=== PATIENT | female | born 1940 | race Caucasian/White ===

== ENCOUNTER 2016-11-30 12:03 | Emergency (ER) | payer MEDICARE, OTHER ==
[2016-11-30 12:16] VITALS: BP 123/78
--- NOTE | 2016-11-30 12:32 | EDM.PDOC ---
ED HPI GENERAL MEDICAL PROBLEM - General Chief Complaint: Lower Extremity Injury/Pain Stated Complaint: Kicked by cow Time Seen by Provider: 11/30/16 12:10 Source of Information: Reports: Patient, RN Notes Reviewed History Limitations: Reports: No Limitations - History of Present Illness INITIAL COMMENTS - FREE TEXT/NARRATIVE: 76 year old female presents to the ED with bruising, swelling, and pain to right knee. She was kicked by a cow around 730 this morning. She is able to bear weight but says it's painful. She was kicked to the lateral aspect of her right knee. She has a history of a total knee replacement. She has a history of peripheral neuropathy but denies any new numbness or tingling today. She denies hip or pelvis pain. She denies any additional injury. She takes aspirin but is otherwise not on blood thinners. Right Knee Pain Score (Numeric/FACES): 7 - Related Data Allergies Allergy/AdvReac Type Severity Reaction Status Date / Time No Known Allergies Allergy Verified 11/30/16 12:16 Home Meds: Home Meds Aspirin 81 mg PO BRK 11/30/16 [History] Past Medical History HEENT History: Reports: Macular Degeneration Gastrointestinal History: Reports: Chronic Constipation, Other (See Below) Other Gastrointestinal History: inguinal hernia Neurological History: Reports: Neuropathy, Peripheral, Parkinson's Dermatologic History: Reports: Other (See Below) Other Dermatologic History: skins spots to patient's back - Past Surgical History HEENT Surgical History: Reports: Cataract Surgery Musculoskeletal Surgical History: Reports: Knee Replacement, Other (See Below) Other Musculoskeletal Surgeries/Procedures:: RTKR Social & Family History - Family History Family Medical History: Noncontributory - Tobacco Use Smoking Status *Q: Never Smoker Second Hand Smoke Exposure: No - Caffeine Use Caffeine Use: Reports: Coffee - Alcohol Use Days Per Week of Alcohol Use: 0 - Recreational Drug Use Recreational Drug Use: No Review of Systems - Review of Systems Review Of Systems: See Below Respiratory: Reports: No Symptoms. Denies: Shortness of Breath, Cough Cardiovascular: Reports: No Symptoms. Denies: Chest Pain GI/Abdominal: Reports: No Symptoms. Denies: Abdominal Pain Musculoskeletal: Reports: Joint Pain, Joint Swelling. Denies: Neck Pain Neurological: Reports: No Symptoms. Denies: Confusion, Dizziness, Headache, Numbness, Tingling, Weakness ED EXAM, GENERAL - Physical Exam Exam: See Below Exam Limited By: No Limitations General Appearance: Alert, No Apparent Distress, Thin Respiratory/Chest: No Respiratory Distress, Lungs Clear, Normal Breath Sounds, Chest Non-Tender Cardiovascular: Normal Peripheral Pulses, Regular Rate, Rhythm, No Murmur Peripheral Pulses: 2+: Popliteal (R), Posterior Tibial (R) GI/Abdominal: Normal Bowel Sounds, Soft, Non-Tender Extremities: Joint Swelling (right knee), Other (joint effusion to right knee. She has a large hematoma to the lateral aspect of her right knee. She is able to flex and extend but is limtied due to swelling. She has no pain to the joint itself. Her pain is mostly to the lateral aspect of her knee where the hematoma is located. Neurovascular status intact. Pedal pulses are 2+. ) Neurological: Alert, Oriented, Normal Cognition, No Motor/Sensory Deficits Skin Exam: Warm, Dry, Intact, Other (bruising right knee) Course - Vital Signs Last Recorded V/S: Last Vital Signs Temp 98.2 F 11/30/16 12:12 Pulse 80 11/30/16 12:12 Resp 18 11/30/16 12:12 BP 123/78 11/30/16 12:12 Pulse Ox 92 L 11/30/16 12:12 - Orders/Labs/Meds Orders: Active Orders 24 hr Category Date Time Status Knee Min 4V Rt [CR] Stat Exams 11/30/16 12:23 Ordered - Re-Assessments/Exams Free Text/Narrative Re-Assessment/Exam: X-rays of right knee are negative for fracture. Prosthesis appears to be in place. Reviewed with Dr. Cotto who agrees. Radiologist interpretation is pending. Knee was jose wrapped. She has a walker at home and has family assistance at home. She was thoroughly educated on supportive care and s/s of DVT. She was educated on exercises to help prevent DVT. Educated on return precautions. Departure - Departure Time of Disposition: 13:11 Disposition: Home, Self-Care 01 Condition: Good Clinical Impression: Traumatic hematoma of right knee Qualifiers: Encounter type: initial encounter Qualified Code(s): S80.01XA - Contusion of right knee, initial encounter History of total knee replacement Qualifiers: Laterality: right Qualified Code(s): Z96.651 - Presence of right artificial knee joint - Discharge Information Referrals: PCP,None [Primary Care Provider] - Forms: ED Department Discharge Additional Instructions: Rest ice and elevate Ice at least 5 times a day for at least 20 minutes at a time Jose wrap to right knee as tolerated Tylenol 1000mg every 8 hours as needed for pain Naproxyn (aleve) 1 tab twice a day as needed for pain (take with food) Follow-up with Ivana Raman next week for recheck Return to ER with any sign of blood clot (pain, swelling, or redness to the back of your leg) or with fever or shortness of breath - My Orders Last 24 Hours: My Active Orders 11/30/16 12:23 Knee Min 4V Rt [CR] Stat - Assessment/Plan Last 24 Hours: My Active Orders 11/30/16 12:23 Knee Min 4V Rt [CR] Stat
--- NOTE | 2016-11-30 15:05 | CR ---
Right knee: Four views of the right knee were obtained. Comparison: No prior knee exam. Knee prosthesis is seen. Components are aligned. Soft tissue swelling is seen laterally. No acute fracture or other bony abnormality is seen. Mild vascular calcification is seen. Impression: 1. Soft tissue swelling laterally. 2. Other incidental findings. No acute bony abnormality is identified. Diagnostic code #2
== END 2016-11-30 13:20 | disposition home or self-care (01) ==
LOC: JD.ED 12:03
DX: S80.01XA Contusion of right knee, initial encounter (principal); Z96.651 Presence of right artificial knee joint; W55.22XA Struck by cow, initial encounter
CPT/HCPCS: 73564-26-RT; 73564-RT; 99283

== ENCOUNTER 2017-07-10 22:57 | Emergency (ER) | payer MEDICARE, OTHER ==
[2017-07-10] MEDS: HYDROmorphone 0.5 MG/0.5 ML SYRINGE IVPUSH ONE (23:30)
[2017-07-10] MEDS: Sodium Chloride 0.9% 500 ML IV ONE (23:30)
[2017-07-10] MEDS: Sodium Chloride 0.9% 10 ML Syringe FLUSH PRN (23:30)
[2017-07-10] MEDS: Famotidine 20 MG/2 ML SDV IVPUSH ONE (23:30)
[2017-07-10] MEDS: Ondansetron 4 MG/2 ML SDV IVPUSH ONE (23:30)
--- NOTE | 2017-07-11 00:13 | EDM.PDOC ---
ED HPI GENERAL MEDICAL PROBLEM - General Chief Complaint: Abdominal Pain Stated Complaint: BACK AND ABDOMINAL PAIN Time Seen by Provider: 07/10/17 23:13 Source of Information: Reports: Patient, RN Notes Reviewed - History of Present Illness INITIAL COMMENTS - FREE TEXT/NARRATIVE: 77-year-old female comes in with upper abdominal pain. She states this started last evening and the pain does continue. It has been fairly steady although not as bad for a while today. she has been eating some toast and crackers but not much else. The pain now also is radiating into her back. Been nauseated but no vomiting. No diarrhea. She states she did have a normal BM earlier today. No obvious fever or chills. No chest pain or difficulty breathing. She still does have her appendix and gallbladder. She has had prior hernia surgery many years ago. Middle Abdominal Pain Score (Numeric/FACES): 9 - Related Data Allergies Allergy/AdvReac Type Severity Reaction Status Date / Time No Known Allergies Allergy Verified 07/10/17 23:06 Home Meds: Home Meds Aspirin 81 mg PO BRK 11/30/16 [History] Multivitamin [Multivitamins] 1 each PO DAILY 07/10/17 [History] Ondansetron [Zofran ODT] 4 mg PO Q6H PRN #10 tab.dis 07/11/17 [Rx] Past Medical History HEENT History: Reports: Macular Degeneration Gastrointestinal History: Reports: Chronic Constipation, Other (See Below) Other Gastrointestinal History: inguinal hernia Neurological History: Reports: Neuropathy, Peripheral, Parkinson's Dermatologic History: Reports: Other (See Below) Other Dermatologic History: skins spots to patient's back - Past Surgical History HEENT Surgical History: Reports: Cataract Surgery Musculoskeletal Surgical History: Reports: Knee Replacement, Other (See Below) Other Musculoskeletal Surgeries/Procedures:: RTKR Social & Family History - Family History Family Medical History: Noncontributory - Tobacco Use Smoking Status *Q: Never Smoker - Caffeine Use Caffeine Use: Reports: Coffee - Recreational Drug Use Recreational Drug Use: No ED ROS GENERAL - Review of Systems Review Of Systems: See Below Constitutional: Denies: Fever, Chills HEENT: Denies: Sinus Problem, Throat Pain Respiratory: Denies: Shortness of Breath, Pleuritic Chest Pain Cardiovascular: Denies: Chest Pain GI/Abdominal: Reports: Abdominal Pain, Nausea. Denies: Hematochezia, Melena Musculoskeletal: Reports: Back Pain. Denies: Arm Pain Skin: Reports: No Symptoms Neurological: Reports: No Symptoms ED EXAM, GI/ABD - Physical Exam Exam: See Below General Appearance: Alert, Moderate Distress Throat/Mouth: Normal Inspection, Normal Oropharynx Neck: Supple Respiratory/Chest: No Respiratory Distress, Lungs Clear, Normal Breath Sounds Cardiovascular: Regular Rate, Rhythm GI/Abdominal Exam: Soft, Other (Very mild upper midepigastric tenderness, abdomen otherwise soft and nontender). No: Guarding, Rebound Extremities: Normal Inspection. No: Pedal Edema, Leg Pain Neurological: Alert, Oriented, No Motor/Sensory Deficits Skin Exam: Warm, Dry, Normal Color EKG INTERPRETATION EKG Date: 07/10/17 Rhythm: NSR Holly: LAD-Left Holly Deviation P-Wave: Present QRS: Normal ST-T: Normal Course - Vital Signs Last Recorded V/S: Last Vital Signs Temp 98.7 F 07/10/17 23:03 Pulse 73 07/10/17 23:03 Resp 16 07/10/17 23:03 BP 132/83 07/10/17 23:03 Pulse Ox 94 L 07/10/17 23:03 - Orders/Labs/Meds Orders: Active Orders 24 hr Category Date Time Status EKG Documentation Completion [RC] ASDIRECTED Care 07/10/17 23:07 Active Peripheral IV Care [RC] . DIRECTED Care 07/10/17 23:14 Active Abdomen 2V AP Flat Upright [CR] Stat Exams 07/10/17 23:25 Taken Sodium Chloride 0.9% [Saline Flush] Med 07/10/17 23:13 Active 10 ml FLUSH ASDIRECTED PRN Peripheral IV Insertion Adult [OM.PC] Stat Oth 07/10/17 23:14 Ordered EKG 12 Lead [EK] Stat Ther 07/10/17 23:07 Ordered Medication Orders Sodium Chloride (Saline Flush) 10 ml FLUSH ASDIRECTED PRN PRN Reason: Keep Vein Open Last Admin: 07/10/17 23:30 Dose: 10 ml Labs: Laboratory Tests 07/10/17 07/10/17 07/10/17 Range/Units 23:20 23:20 23:20 WBC 6.42 (3.98-10.04) K/mm3 RBC 4.58 (3.98-5.22) M/mm3 Hgb 13.9 (11.2-15.7) gm/L Hct 42.1 (34.1-44.9) % MCV 91.9 (79.4-94.8) fl MCH 30.3 (25.6-32.2) pg MCHC 33.0 (32.2-35.5) g/dl RDW Std Deviation 43.0 (36.4-46.3) fL Plt Count 162 L (182-369) K/mm3 MPV 9.6 (9.4-12.3) fl Neut % (Auto) 78.0 H (34.0-71.1) % Lymph % (Auto) 15.3 L (19.3-51.7) % Bath % (Auto) 5.1 (4.7-12.5) % Eos % (Auto) 1.1 (0.7-5.8) Baso % (Auto) 0.2 (0.1-1.2) % Neut # (Auto) 5.01 (1.56-6.13) K/mm3 Lymph # (Auto) 0.98 L (1.18-3.74) K/mm3 Bath # (Auto) 0.33 (0.24-0.36) K/mm3 Eos # (Auto) 0.07 (0.04-0.36) K/mm3 Baso # (Auto) 0.01 (0.01-0.08) K/mm3 Sodium 138 (136-145) mEq/L Potassium 4.0 (3.5-5.1) mEq/L Chloride 103 (98-107) mEq/L Carbon Dioxide 25 (21-32) mEq/L Anion Gap 14.0 (5-15) BUN 13 (7-18) mg/dL Creatinine 0.9 (0.55-1.02) mg/dL Est Cr Clr Drug Dosing 42.42 mL/min Estimated GFR (MDRD) > 60 (>60) mL/min BUN/Creatinine Ratio 14.4 (14-18) Glucose 145 H (83-115) mg/dL Calcium 8.5 (8.5-10.1) mg/dL Total Bilirubin 0.7 (0.2-1.0) mg/dL AST 25 (15-37) U/L ALT 21 (14-59) U/L Alkaline Phosphatase 58 (46-116) U/L C-Reactive Protein < 0.2 (<1.0) mg/dL Total Protein 6.6 (6.4-8.2) g/dl Albumin 3.7 (3.4-5.0) g/dl Globulin 2.9 gm/dL Albumin/Globulin Ratio 1.3 (1-2) Lipase 207 (73-393) U/L Meds: Medications Generic Name Dose Route Start Last Admin Trade Name Freq PRN Reason Stop Dose Admin Sodium Chloride 10 ml 07/10/17 23:13 07/10/17 23:30 Saline Flush FLUSH 10 ml ASDIRECTED PRN Administration Keep Vein Open Discontinued Medications Generic Name Dose Route Start Last Admin Trade Name Freq PRN Reason Stop Dose Admin Famotidine 20 mg 07/10/17 23:23 07/10/17 23:30 Pepcid IVPUSH 07/10/17 23:24 20 mg ONETIME ONE Administration Hydromorphone HCl 0.5 mg 07/10/17 23:22 07/10/17 23:30 Dilaudid IVPUSH 07/10/17 23:23 0.5 mg ONETIME ONE Administration Sodium Chloride 500 mls @ 999 mls/hr 07/10/17 23:23 07/10/17 23:30 Normal Saline IV 07/10/17 23:53 999 mls/hr .BOLUS ONE Administration Ondansetron HCl 4 mg 07/10/17 23:23 07/10/17 23:30 Zofran IVPUSH 07/10/17 23:24 4 mg ONETIME ONE Administration - Re-Assessments/Exams Free Text/Narrative Re-Assessment/Exam: 07/11/17 01:02 Labs all come back relatively normal, flat and upright of the abdomen also does not show acute abnormality. We did give her Zofran 4 mg IV, and given some IV fluid, and initial dose of Dilaudid 0.25 mg IV. That did give some relief for a while, pain did start coming back so the 0.25 mg dose was repeated. Next step of evaluation recommended his ultrasound of her gallbladder. It is not appropriate to do that at this time, 1:00 in the morning. I have offered to let her stay here in the ED and do that first thing this morning. She would prefer to go home and do that outpatient. Order for outpatient ultrasound of gallbladder has been written and will be sent over to radiology. Discharge instructions as documented. Departure - Departure Time of Disposition: 00:51 Disposition: Home, Self-Care 01 Condition: Fair Clinical Impression: Abdominal pain Qualifiers: Abdominal location: upper abdomen, unspecified Qualified Code(s): R10.10 - Upper abdominal pain, unspecified - Discharge Information Prescriptions: Ondansetron [Zofran ODT] 4 mg PO Q6H PRN #10 tab.dis PRN Reason: Nausea/Vomiting Instructions: Abdominal Pain, Adult, [id number] Referrals: Ivana Raman, [employer]EL[employer] [Primary Care Provider] - Forms: ED Department Discharge Additional Instructions: Clear liquids and very bland diet as tolerated, Zofran if needed for any further nausea or vomiting, prescription has been sent to [facility], consider taking Pepcid 20 mg daily to help reduce stomach acidity, order for ultrasound of gallbladder has been written and sent to radiology, they will call you this morning to set a time for you to come in and have that done. Nothing to eat or drink after midnight before coming in for the ultrasound, Follow up with Ivana Raman the day after your ultrasound for results, call clinic for appointment, return to ED as needed if symptoms worsening in any way. - My Orders Last 24 Hours: My Active Orders 07/10/17 23:07 EKG Documentation Completion [RC] ASDIRECTED EKG 12 Lead [EK] Stat 07/10/17 23:13 Sodium Chloride 0.9% [Saline Flush] 10 ml FLUSH ASDIRECTED PRN 07/10/17 23:14 Peripheral IV Care [RC] . DIRECTED Peripheral IV Insertion Adult [OM.PC] Stat 07/10/17 23:25 Abdomen 2V AP Flat Upright [CR] Stat - Assessment/Plan Last 24 Hours: My Active Orders 07/10/17 23:07 EKG Documentation Completion [RC] ASDIRECTED EKG 12 Lead [EK] Stat 07/10/17 23:13 Sodium Chloride 0.9% [Saline Flush] 10 ml FLUSH ASDIRECTED PRN 07/10/17 23:14 Peripheral IV Care [RC] . DIRECTED Peripheral IV Insertion Adult [OM.PC] Stat 07/10/17 23:25 Abdomen 2V AP Flat Upright [CR] Stat
[2017-07-11 01:10] VITALS: BP 116/71
--- NOTE | 2017-07-11 06:49 | CR ---
Abdomen: Supine and upright views of the abdomen were obtained. Comparison: No prior abdominal x-ray. Orthopedic hardware is noted within the left hip affixing an old fracture. Well-corticated bony density which is old is seen off the lateral left hip. Scoliosis and degenerative change are noted within the spine. Mild joint space narrowing is seen superiorly within the right hip. Bowel gas pattern appears normal. No free air is seen. Stable sclerotic area is seen within the left pubic ramus. Impression: 1. Incidental findings. Nothing acute is seen on two-view abdominal x-ray. Diagnostic code #2
== END 2017-07-11 01:11 | disposition home or self-care (01) ==
LOC: JD.ED 22:57
DX: R10.10 Upper abdominal pain, unspecified (principal); Z79.82 Long term (current) use of aspirin; Z79.899 Other long term (current) drug therapy
CPT/HCPCS: 36415; 74019; 80053; 83690; 85025; 86140; 93005; 96361; 96374; 96375; 99284; J1170; J2405; J7040; J7050

== ENCOUNTER 2017-07-11 11:11 | Emergency (ER) | payer MEDICARE, OTHER ==
[2017-07-11 11:29] VITALS: BP 121/69
--- NOTE | 2017-07-11 11:31 | EDM.PDOC ---
ED HPI GENERAL MEDICAL PROBLEM - General Chief Complaint: Abdominal Pain Stated Complaint: BACK AND ABDOMINAL PAIN Time Seen by Provider: 07/11/17 11:29 Source of Information: Reports: Patient - History of Present Illness INITIAL COMMENTS - FREE TEXT/NARRATIVE: Patient is here for evaluation of upper back pain and upper abdominal/ epigastric pain. Patient was in the emergency room last night for evaluation of the same complaints.Patient states that her pain resolved with medication that was given in the emergency room, however the pain medication did cause her to be nauseated. She had 1 emesis last night. She had been prescribed Zofran, but as it was late she had not yet picked this up. Patient states that this morning she continued to have upper back pain so she came back to the emergency room as she was not better. Upon arrival in the emergency room she is not having any pain. Patient reports a history of chronic neck and upper back pain. She states she had injury many years ago of a horse rolling on it. Patient was also very active on Sunday afternoon push m[place]. She states the pain started Sunday night. Patient states that the abdominal pain, when she had it, felt like a gas pain but it was very high up in her abdomen. She has a history of occasional constipation but has had normal bowel movements recently. Her last bowel movement was yesterday and was soft and not difficult to pass. Patient reports no decrease in her appetite, had some toast with water this morning which is her normal and had no nausea or abdominal pain with this. Abdominal Pain Score (Numeric/FACES): 5 - Related Data Allergies Allergy/AdvReac Type Severity Reaction Status Date / Time No Known Allergies Allergy Verified 07/11/17 11:24 Home Meds: Home Meds Aspirin 81 mg PO BRK 11/30/16 [History] Multivitamin [Multivitamins] 1 each PO DAILY 07/10/17 [History] Ondansetron [Zofran ODT] 4 mg PO Q6H PRN #10 tab.dis 07/11/17 [Rx] Past Medical History HEENT History: Reports: Macular Degeneration Gastrointestinal History: Reports: Chronic Constipation, Other (See Below) Other Gastrointestinal History: inguinal hernia Neurological History: Reports: Neuropathy, Peripheral, Parkinson's Dermatologic History: Reports: Other (See Below) Other Dermatologic History: skins spots to patient's back - Past Surgical History HEENT Surgical History: Reports: Cataract Surgery Musculoskeletal Surgical History: Reports: Knee Replacement, Other (See Below) Other Musculoskeletal Surgeries/Procedures:: RTKR Social & Family History - Family History Family Medical History: Noncontributory - Tobacco Use Smoking Status *Q: Never Smoker - Caffeine Use Caffeine Use: Reports: Coffee ED ROS GENERAL - Review of Systems Review Of Systems: See Below Constitutional: Reports: No Symptoms Respiratory: Reports: No Symptoms Cardiovascular: Reports: No Symptoms GI/Abdominal: Reports: Abdominal Pain (Upper/epigastric pain yesterday.), Nausea (Nausea and 1 emesis last night, none currently.). Denies: Decreased Appetite : Reports: No Symptoms Musculoskeletal: Reports: Neck Pain, Back Pain, Muscle Pain ED EXAM, GI/ABD - Physical Exam Exam: See Below Exam Limited By: No Limitations General Appearance: Alert, WD/WN, No Apparent Distress, Other (Thin body habitus ) Respiratory/Chest: No Respiratory Distress, Lungs Clear, No Accessory Muscle Use , Chest Non-Tender Cardiovascular: Normal Peripheral Pulses, Regular Rate, Rhythm, No Murmur GI/Abdominal Exam: Normal Bowel Sounds, Soft, Non-Tender Back Exam: Normal Inspection, Decreased Range of Motion (Overall). No: Paraspinal Tenderness, Vertebral Tenderness Extremities: Normal Inspection Neurological: Alert, Oriented, No Motor/Sensory Deficits Psychiatric: Normal Affect, Normal Mood Skin Exam: Warm, Dry, Intact Course - Vital Signs Last Recorded V/S: Last Vital Signs Temp 99.6 F 07/11/17 11:25 Pulse 67 07/11/17 11:25 Resp 16 07/11/17 11:25 BP 121/69 07/11/17 11:25 Pulse Ox 94 L 07/11/17 11:25 - Orders/Labs/Meds Meds: Medications Discontinued Medications Generic Name Dose Route Start Last Admin Trade Name Freq PRN Reason Stop Dose Admin Sodium Chloride 250 mls @ 80 mls/hr 07/11/17 14:30 07/11/17 14:51 Normal Saline IV 80 mls/hr ASDIRECTED CATINA Infusion Iopamidol 100 ml 07/11/17 14:23 07/11/17 14:50 Isovue-370 (76%) IVPUSH 07/11/17 14:24 70 ml ONETIME ONE Administration Sodium Chloride 10 ml 07/11/17 14:23 07/11/17 14:50 Saline Flush FLUSH 10 ml ONETIME PRN Administration IV FLUSH - Re-Assessments/Exams Free Text/Narrative Re-Assessment/Exam: Patient's physical exam is unremarkable currently. She has no abdominal tenderness. No tenderness to neck or upper back. She is currently pain-free. Lab work from late last night was reviewed and demonstrated white blood count of 6,420. Chemistry was essentially normal, glucose elevated at 145. Bilirubin was 0.7. Normal liver enzymes. Lipase was completed and normal at 207. CRP was <0.2. Abdominal x-ray last night demonstrated nothing acute. As it was her neck and upper back pain that brought her back this morning, we' ll get an x-ray of her cervical and thoracic spine. She is currently in no pain , no medications indicated. 07/11/17 11:58 X-ray of cervical and thoracic spine demonstrated some kyphosis, scoliosis and significant degenerative changes. Questionable enlargement of the ascending aorta, will get CT of the chest. 07/11/17 14:07 X-ray of the cervical spine demonstrates degenerative changes. Xray of thoracic spine demonstrates scoliosis and osteoporosis with end plate osteophytes. 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 Recommend follow-up with PCP for monitoring of this. Does not have gallstones, but cannot exclude sludge on x-ray and recommend she still continue with her ultrasound of her gallbladder as scheduled. She is to continue to maximize oral fluid intake, bland diet with very low fat. She will follow up on an outpatient basis for her ultrasound. She'll follow- up with her primary provider after this. Certainly return to the emergency room if needed. 07/11/17 15:51 07/11/17 16:31 Departure - Departure Time of Disposition: 15:25 Disposition: Home, Self-Care 01 Condition: Good Clinical Impression: Neck pain Abdominal pain Qualifiers: Abdominal location: upper abdomen, unspecified Qualified Code(s): R10.10 - Upper abdominal pain, unspecified Back pain Qualifiers: Back pain location: thoracic back pain Back pain laterality: midline - Discharge Information Instructions: Back Pain, Adult, Abdominal Pain, Adult, [id number] Referrals: Ivana Raman [employer] MANAGER [Primary Care Provider] - Forms: ED Department Discharge Additional Instructions: You were evaluated in the emergency room for a history of abdominal pain. Your exam here today was normal. Lab work and abdominal x-ray from yesterday were reviewed and normal as well. I recommend you have a bland, low-fat diet and follow-up with your outpatient ultrasound appointment. You will follow up with her primary provider to discuss these results. X-ray of your neck and upper back demonstrated significant arthritic changes. I recommend ibuprofen 400 mg 3 times a day as needed for this. You should drink lots of fluids to flush this through your system and take the ibuprofen with a small amount of food so it does not upset your stomach. CT demonstrated a mildly enlarged aorta, I recommend that he discuss this with her primary provider for them to follow in the future. Follow-up with your primary provider within the next week or certainly return to the emergency room if any worsening of symptoms.
[2017-07-11] MEDS: Sodium Chloride 0.9% 250 ML IV SCH (14:50)
[2017-07-11] MEDS: Iopamidol 755 Mg/ML 100 ML Bottle IVPUSH ONE (14:50)
[2017-07-11] MEDS: Sodium Chloride 0.9% 10 ML Syringe FLUSH PRN (14:50)
--- NOTE | 2017-07-11 15:05 | CR ---
Cervical spine: AP, lateral and odontoid views of the cervical spine were obtained. Comparison: No prior cervical spine imaging. Severe disc space narrowing is noted at C5-C6 with moderate disc space narrowing noted at C6-C7. Anterior osteophytes are seen at both these levels. Mild disc space narrowing at C3-C4. Bony structures are osteopenic. Degenerative apophyseal change is scattered within the cervical spine. No subluxation or fracture is seen. Impression: 1. Degenerative change as noted above with osteopenia. Diagnostic code #2
--- NOTE | 2017-07-11 15:15 | CT ---
CT chest Technique: Multiple axial sections through the chest were obtained. Intravenous contrast was utilized. Study performed as an aortogram exam. Comparison: Prior chest x-ray 06/01/15, no previous chest CT. Findings: Ascending aorta is mildly ectatic with AP dimension of 3.7 cm. No evidence of aortic dissection. Visualized pulmonary arteries show no filling defects of pulmonary embolism. Mediastinum and hilar regions show no adenopathy or mass. No axillary adenopathy is seen. No pericardial thickening is identified. Slight scarring is noted within both lung bases. No acute parenchymal change is suspected. Bone window settings were reviewed which shows nothing acute. Impression: 1. Ectatic ascending aorta. No evidence of aortic dissection. 2. Other incidental findings. Diagnostic code #2 CT abdomen Technique: Multiple axial sections were obtained from above the dome of the diaphragm inferiorly to slightly above the hips. Intravenous contrast was utilized. No oral contrast has been given. Comparison: No prior abdominal imaging. Findings: Liver shows no focal parenchymal abnormality. Gallbladder contains no calcified gallstones. Spleen appears within normal limits. Aorta shows ectasia without focal aneurysm. No aortic dissection is seen. Kidneys show symmetric contrast enhancement. Calcification is seen within the right kidney compatible with nonobstructing stone. Renal arteries are patent with no stenosis. Celiac axis and superior mesenteric artery appear patent. Inferior mesenteric artery is also patent. No retroperitoneal adenopathy or mesenteric abnormalities are seen. Pancreas is felt to be within normal limits. Bone window settings were reviewed showing degenerative change and scoliosis within the spine. Impression: 1. Incidental findings as noted above. Nothing acute is seen. No dissection is seen. Diagnostic code #2
--- NOTE | 2017-07-11 15:15 | CR ---
Thoracic spine: AP, lateral and swimmer's views of the thoracic spine were obtained. Comparison: No prior thoracic spine study. Bony structures are osteoporotic. Mild scoliosis is present. Vertebral body heights are maintained. Minimal scattered endplate osteophytes are seen. No subluxation or fracture is appreciated. Impression: 1. Scoliosis and osteoporosis. 2. Minimal scattered endplate osteophytes. Diagnostic code #2
== END 2017-07-11 15:49 | disposition home or self-care (01) ==
LOC: JD.ED 11:11
DX: M54.6 Pain in thoracic spine (principal); R10.10 Upper abdominal pain, unspecified; M54.2 Cervicalgia; Z79.82 Long term (current) use of aspirin; Z79.899 Other long term (current) drug therapy
CPT/HCPCS: 71275; 72040; 72070; 99285; J7050; Q9967

== ENCOUNTER 2019-09-08 17:35 | Emergency (ER) | payer MEDICARE, OTHER ==
[2019-09-08 17:49] VITALS: PULSE 75
--- NOTE | 2019-09-08 17:56 | EDM.PDOC ---
ED HPI GENERAL MEDICAL PROBLEM - General Chief Complaint: Head Injury Stated Complaint: FALL (HEAD INJURY) Time Seen by Provider: 09/08/19 17:55 Source of Information: Reports: Patient History Limitations: Reports: No Limitations - History of Present Illness INITIAL COMMENTS - FREE TEXT/NARRATIVE: 79 year-old female presents to the ED after she tripped up and fell into a steel post at about 1230 hrs. today. She believes she lost her balance and tripped up and struck her right occipital scalp on the metal pole as part of a calf monica. Her right occipital scalp continues to bleed. Daughter unable to recognize for sure where the bleeding is coming from but of obvious suspect laceration. Patient states she heard quite a thud when she hit her head. She did not lose consciousness. At present she has no headache nausea or vomiting. No change in visual acuity and she denies any cervical neck pain. She is unsure when her last tetanus toxoid was updated. Onset: Today Onset Date: 09/08/19 Onset Time: 12:30 Duration: Hour(s): Location: Reports: Head (Occipital scalp with persistent bleeding) Quality: Reports: Ache, Other (Acute bleeding from the right occipital scalp injury.) Severity: Mild Improves with: Reports: None Worsens with: Reports: Other (In the area seems to increase the amount of bleeding.) Context: Reports: Trauma (Fall with blunt force trauma to the right occipital scalp.). Denies: Activity, Exercise, Lifting, Sick Contact Associated Symptoms: Reports: No Other Symptoms. 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) (.) Right Head Pain Score (Numeric/FACES): 1 - Related Data Allergies Allergy/AdvReac Type Severity Reaction Status Date / Time No Known Allergies Allergy Verified 09/08/19 17:49 Home Meds: Home Meds Aspirin 81 mg PO DAILY 11/30/16 [History] Multivitamin [Multivitamins] 1 each PO DAILY 07/10/17 [History] Denosumab [Prolia] 60 mg SQ ASDIRECTED 04/24/19 [History] Past Medical History HEENT History: Reports: Macular Degeneration Gastrointestinal History: Reports: Chronic Constipation, Other (See Below) Other Gastrointestinal History: inguinal hernia Neurological History: Reports: Neuropathy, Peripheral, Parkinson's Endocrine/Metabolic History: Reports: Osteoporosis, Vitamin D Deficiency Dermatologic History: Reports: Other (See Below) Other Dermatologic History: skins spots to patient's back - Past Surgical History HEENT Surgical History: Reports: Cataract Surgery Musculoskeletal Surgical History: Reports: Knee Replacement, Other (See Below) Other Musculoskeletal Surgeries/Procedures:: RTKR Social & Family History - Family History Family Medical History: Noncontributory - Caffeine Use Caffeine Use: Reports: Coffee - Living Situation & Occupation Living situation: Reports: Occupation: Retired ED ROS GENERAL - Review of Systems Review Of Systems: See Below Constitutional: Reports: No Symptoms HEENT: Reports: No Symptoms Respiratory: Reports: No Symptoms Cardiovascular: Denies: Chest Pain, Blood Pressure Problem, Claudication, Lightheadedness, Orthopnea Endocrine: Reports: No Symptoms GI/Abdominal: Reports: No Symptoms : Reports: Frequency, Incontinence (And urge induced.), Other Musculoskeletal: Reports: Shoulder Pain (Regional.), Back Pain, Joint Pain (His hips and neck at times) Skin: Reports: Other (Laceration right occipital scalp.) Neurological: Denies: Confusion, Dizziness, Headache, Pre-Existing Deficit, Seizure, Syncope, Trouble Speaking, Difficulty Walking, Weakness Psychiatric: Reports: No Symptoms Hematologic/Lymphatic: Reports: No Symptoms Immunologic: Reports: No Symptoms ED EXAM, HEAD INJURY - Physical Exam Exam: See Below Exam Limited By: No Limitations General Appearance: Alert, WD/WN, No Apparent Distress, Other (Which was 36.2. Heart rate 75 and sinus respiratory is 18. Sats were 94 to 95% on room air BP 135/79.) Head: Scalp Hematoma (Right occipital scalp), Scalp Tenderness (Occipital scalp.), Active Bleeding ( Small arterial bleeding from a 2.5 cm laceration right occipital scalp.) Nexus Criteria: No: Posterior, Midline Cervical Tenderness, Evidence of Intoxication, Altered Level of Consciousness, Focal Neurological Deficit, Painful Distraction Injuries Eyes: Bilateral Eye: Normal Inspection, PERRL Throat/Mouth: Normal Inspection, Normal Lips, Normal Teeth, Normal Oropharynx Neck: Non-Tender, Limited Range of Motion (He has some crepitus on lateral rotation but near full range of motion.), Stiff Neck (Bile but no worse than normal.). No: Painful Range of Motion, Paraspinous Muscle Tender, Spinous Processes Tender, Tenderness, Tender Lateral Respiratory: No Respiratory Distress, Lungs Clear, Normal Breath Sounds, No Accessory Muscle Use, Decreased Breath Sounds (Decreased breath sounds to both posterior lung bases by about 30%.) Cardiovascular: Regular Rate, Rhythm, No Edema, No Gallop, No Murmur, No Rub. No: Normal Peripheral Pulses ED LACERATION/WOUND & OCTAVIO PROC - Laceration/Wound Repair Right Occipital Head Lac/wound length in cm: 2.5 Appearance: Subcutaneous, Clean Distal NVT: Neuro & Vascular Intact, No Tendon Injury Anesthetic Type: Local Local Anesthesia - Lidocaine (Xylocaine): 1% Plain Local Anesthetic Volume: 3cc Skin Prep: Saline Exploration/Debridement/Repair: Wound Explored Closed with: Sutures Suture Size: 4-0 # of Sutures: 5 Suture Type: Prolene, Interrupted, Simple Course - Vital Signs Last Recorded V/S: Last Vital Signs Temp 36.2 C 09/08/19 17:46 Pulse 75 09/08/19 17:46 Resp 18 09/08/19 17:46 BP 135/79 09/08/19 17:46 Pulse Ox 94 L 09/08/19 17:46 - Orders/Labs/Meds Orders: Active Orders 24 hr Category Date Time Status Vaccines to be Administered [RC] PER UNIT ROUTINE Care 09/08/19 18:45 Ordered Head wo Cont [CT] Stat Exams 09/08/19 18:00 Taken Meds: Medications Discontinued Medications Generic Name Dose Route Start Last Admin Trade Name Freq PRN Reason Stop Dose Admin Diphtheria/Tetanus/Acell Pertussis 0.5 ml 09/08/19 18:45 Adacel IM 09/08/19 18:46 .ONCE ONE Lidocaine HCl 10 ml 09/08/19 18:00 Xylocaine 1% INJECT 09/08/19 18:01 ONETIME ONE - Radiology Interpretation Free Text/Narrative:: 79-year-old female presents to the ED after tripping and falling at about 1230 today and striking her right occipital scalp on a metal pole. The metal pole was part of a calf monica on the farm. He denies any loss of consciousness. She denies any developing headache nausea or vomiting or cervical neck pain. It is appreciated by her daughter that the wound continues to bleed over the last 6 hours. Her hair was matted to her scalp. Identified after cleansing the wound and removing a lot of hair from her right occipital scalp that she has a 2.5 cm laceration in this area with active arterial bleeding. Wound will require suture repair. Plan will be to CT her head to make sure that she does not have any intracranial bleeding. Patient has significant osteoporosis. - Re-Assessments/Exams Free Text/Narrative Re-Assessment/Exam: 09/08/19 18:24: Laceration has been sutured times 5 sutures with 4-0 Prolene. Wound will need to be cleansed daily with showering and use of shampoo. Sutures will need to be removed in 10 days time. Daily bacitracin or Polysporin should be applied to the wound once daily. She will now go for CT of the head. There is no registry for her ever having a tetanus within the last 10 years. I will therefore go ahead with Tdap immunization today. 09/08/19 18:47 CT of the head does not reveal any signs of fracture or intracranial bleeding. She does have advanced dementia changes with significant nonspecific diffuse matter white matter lucency. Mall vessel ischemic change appreciated. No lacunar infarcts is evident. No mass or collection or hemorrhage identified. No skull fracture identified. There is a hematoma right occipital scalp. Mastoid air cells are well aerated. Nonspecific mucosal periosteal thickening in the sphenoid sinus complex. Patient will be discharged to home. Apply bacitracin or Polysporin to the wound once daily. Departure - Departure Time of Disposition: 18:50 Disposition: Home, Self-Care 01 Condition: Fair Clinical Impression: Occipital scalp laceration Qualifiers: Encounter type: initial encounter Qualified Code(s): S01.01XA - Laceration without foreign body of scalp, initial encounter Closed head injury without concussion Qualifiers: Encounter type: initial encounter Qualified Code(s): S09.90XA - Unspecified injury of head, initial encounter - Discharge Information *PRESCRIPTION DRUG MONITORING PROGRAM REVIEWED*: Not Applicable *COPY OF PRESCRIPTION DRUG MONITORING REPORT IN PATIENT JEANINE: Not Applicable Instructions: Laceration Care, Adult, Head Injury, Adult, [id number] Forms: ED Department Discharge Additional Instructions: Ligation in the emergency room today in regards to trip and fall and closed head injury to the right occipital scalp. This injury occurred around 1230 today. No loss of consciousness reported. Subsequently no development of headache nausea or vomiting. Persistent bleeding from the area revealed to be due to a 2.5 cm laceration of the occipital scalp. Wound was cleansed and then sutured under local anesthetic times 5 sutures using 4-0 Prolene. Treatment at home is to daily cleanse the wound with soap and water. Showering is okay. Either that or bathing with shampoo is okay. The wound should be treated with topical antibiotic such as bacitracin or Polysporin or Neosporin once daily. Sutures are going to need to be removed in 10 days time. Please make an appointment with your primary care provider to have this procedure carried out. CT of the brain today reveals age-related is but there is no intracranial bleeding or mass-effect and no skull fractures. There is a hematoma or swelling under the skin under the laceration. Your tetanus, diphtheria and pertussis vaccine was updated today and is good for the next 10 years. Sepsis Event Note (ED) - Evaluation Sepsis Screening Result: No Definite Risk - Focused Exam Vital Signs: Vital Signs Temp Pulse Resp BP Pulse Ox 09/08/19 17:46 36.2 C 75 18 135/79 94 L - My Orders Last 24 Hours: My Active Orders 09/08/19 18:00 Head wo Cont [CT] Stat 09/08/19 18:45 Vaccines to be Administered [RC] PER UNIT ROUTINE - Assessment/Plan Last 24 Hours: My Active Orders 09/08/19 18:00 Head wo Cont [CT] Stat 09/08/19 18:45 Vaccines to be Administered [RC] PER UNIT ROUTINE
[2019-09-08] MEDS ORDERED: Lidocaine 1% 10 ML MDV INJECT ONE (18:00)
[2019-09-08] MEDS ORDERED: Diphtheria,Pertussis(Acell),Tetanus Vaccine 0.5 ML Syringe IM ONE (18:45)
--- NOTE | 2019-09-08 19:16 | CT ---
Head CT Technique: Multiple axial sections through the brain were obtained. Intravenous contrast was not utilized. Comparison: Prior head CT study of 03/24/10. Findings: Ventricles along with basal cisterns and sulci over the convexities are mildly prominent for the patient's age. Diminished density is noted within portions of the periventricular and subcortical white matter. This finding is most likely due to small vessel ischemic demyelination change. No other abnormal parenchymal densities are seen. No evidence of intracranial hemorrhage. No midline shift or mass-effect is seen. Bone window settings were reviewed. No acute findings within the visualized mastoid sinus. Small retention cyst is noted within the right side of the sphenoid sinus measuring 9 mm. No acute paranasal sinus findings are seen within the visualized sinuses. Mild soft tissue swelling is noted within the right parietal scalp. Impression: 1. Mild soft tissue swelling within the right parietal scalp. 2. Senescent change as noted above. 3. Sinus finding believed to be incidental and chronic. 4. No acute intracranial abnormality is appreciated. Diagnostic code #2 This report was dictated in MDT I agree with preliminary report from [facility], finalized on 09/08/19, 7:39 PM Central Daylight Time
[2019-09-08 19:55] VITALS: BP 125/86
== END 2019-09-08 19:13 | disposition home or self-care (01) ==
LOC: JD.ED 17:35
DX: S01.01XA Laceration without foreign body of scalp, initial encounter (principal); Z23 Encounter for immunization; Z79.82 Long term (current) use of aspirin; W01.10XA Fall on same level from slipping, tripping and stumbling with subsequent striking against unspecified object, initial encounter
CPT/HCPCS: 12001; 70450; 90471; 90715; 99284; J2001; 99282

== ENCOUNTER 2019-10-14 17:16 | Observation (INO) | payer MEDICARE, OTHER ==
--- NOTE | 2019-10-14 17:52 | EDM.PDOC ---
ED HPI GENERAL MEDICAL PROBLEM - General Chief Complaint: ENT Problem Stated Complaint: SOMETHING STUCK IN THROAT Time Seen by Provider: 10/14/19 17:51 - History of Present Illness INITIAL COMMENTS - FREE TEXT/NARRATIVE: 79-year-old female presents to the emergency room with some stuck in her throat. The patient was eating almonds and managed to swallow a whole 1 it is stuck in her throat it is difficult for her to trying to drink water at this time. She is not having any breathing difficulties or shortness of breath that is out of the ordinary. She is not having any chest pain or chest pressure. However it is uncomfortable for her to try clear fluids at this point. The patient has Parkinson's disease. Throat Pain Score (Numeric/FACES): 10 - Related Data Allergies Allergy/AdvReac Type Severity Reaction Status Date / Time No Known Allergies Allergy Verified 10/14/19 17:30 Home Meds: Home Meds Aspirin 81 mg PO DAILY 11/30/16 [History] Multivitamin [Multivitamins] 1 each PO DAILY 07/10/17 [History] Denosumab [Prolia] 60 mg SQ ASDIRECTED 04/24/19 [History] Past Medical History HEENT History: Reports: Macular Degeneration Cardiovascular History: Reports: None Respiratory History: Reports: SOB Gastrointestinal History: Reports: Chronic Constipation, Other (See Below) Other Gastrointestinal History: inguinal hernia Genitourinary History: Reports: UTI, 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 Musculoskeletal History: Reports: Other (See Below) Neurological History: Reports: Neuropathy, Peripheral, Parkinson's Other Neuro History: compression fractures to spine Psychiatric History: Reports: None Endocrine/Metabolic History: Reports: Osteoporosis, Vitamin D Deficiency Hematologic History: Reports: None Immunologic History: Reports: None Oncologic (Cancer) History: Reports: None Dermatologic History: Reports: Other (See Below) Other Dermatologic History: skins spots to patient's back - Infectious Disease History Infectious Disease History: Reports: None - Past Surgical History HEENT Surgical History: Reports: Cataract Surgery Musculoskeletal Surgical History: Reports: Knee Replacement, Other (See Below) Other Musculoskeletal Surgeries/Procedures:: RTKR Social & Family History - Family History Family Medical History: Noncontributory - Tobacco Use Smoking Status *Q: Never Smoker - Caffeine Use Caffeine Use: Reports: Soda - Recreational Drug Use Recreational Drug Use: No - Living Situation & Occupation Living situation: Reports: Occupation: Retired ED ROS ENT - Review of Systems Review Of Systems: See Below Constitutional: Reports: No Symptoms HEENT: Reports: Throat Pain Respiratory: Reports: No Symptoms Cardiovascular: Reports: No Symptoms GI/Abdominal: Reports: No Symptoms ED EXAM, ENT - Physical Exam Exam: See Below Exam Limited By: No Limitations General Appearance: Alert, No Apparent Distress (Yet heard the) Mouth/Throat: Normal Inspection, Normal Gums, Normal Lips, Normal Oropharynx Head: Atraumatic, Normocephalic Neck: Normal Inspection, Supple, Non-Tender, Full Range of Motion. No: Lymphadenopathy (L), Lymphadenopathy (R) Respiratory/Chest: No Respiratory Distress, Lungs Clear, Normal Breath Sounds Cardiovascular: Regular Rate, Rhythm, No Edema, No Murmur GI/Abdominal: Normal Bowel Sounds, Soft, Non-Tender Course - Vital Signs Last Recorded V/S: Last Vital Signs Temp 36.4 C 10/14/19 17:28 Pulse 70 10/14/19 17:28 Resp 16 10/14/19 17:28 BP 164/87 H 10/14/19 17:28 Pulse Ox 96 10/14/19 17:28 - Orders/Labs/Meds Orders: Active Orders 24 hr Category Date Time Status Patient Status [ADT] Routine ADT 10/14/19 19:32 Active Lactated Ringers [Ringers, Lactated] 1,000 ml Med 10/14/19 19:30 Active IV ASDIRECTED Schedule Procedure [COMM] Stat Oth 10/14/19 19:32 Ordered Medication Orders Lactated Ringer's (Ringers, Lactated) 1,000 mls @ 125 mls/hr IV ASDIRECTED CATINA Last Admin: 10/14/19 19:33 Dose: 125 mls/hr Documented by: JOHN Labs: Laboratory Tests 10/14/19 Range/Units 19:02 COVID-19 ([place]) Negative (NEGATIVE) Meds: Medications Generic Name Dose Route Start Last Admin Trade Name Freq PRN Reason Stop Dose Admin Lactated Ringer's 1,000 mls @ 125 mls/hr 10/14/19 19:30 10/14/19 19:33 Ringers, Lactated IV 125 mls/hr ASDIRECTED CATINA Administration Discontinued Medications Generic Name Dose Route Start Last Admin Trade Name Freq PRN Reason Stop Dose Admin Glucagon 1 mg 10/14/19 18:04 10/14/19 18:31 Glucagen IVPUSH 10/14/19 18:05 1 mg ONETIME ONE Administration Hydromorphone HCl 0.25 mg 10/14/19 18:04 10/14/19 18:15 Dilaudid IVPUSH 10/14/19 18:05 0.25 mg ONETIME ONE Administration Metoclopramide HCl 5 mg 10/14/19 18:04 10/14/19 18:15 Reglan IVPUSH 10/14/19 18:05 5 mg ONETIME ONE Administration - Re-Assessments/Exams Free Text/Narrative Re-Assessment/Exam: 10/14/19 19:50 Patient was given a trial of Dilaudid and Reglan followed by glucagon after 15 minutes and then was given fluids to try and sip the patient did not tolerate this. Patient was evaluated by Dr. Hood who will take the patient for endoscopy to clear this. Departure - Departure Time of Disposition: 19:51 Disposition: DC/Tfer to [facility] 66 Clinical Impression: Esophageal foreign body - Discharge Information Sepsis Event Note (ED) - Evaluation Sepsis Screening Result: No Definite Risk - Focused Exam Vital Signs: Vital Signs Temp Pulse Resp BP Pulse Ox 10/14/19 17:28 36.4 C 70 16 164/87 H 96 - My Orders Last 24 Hours: My Active Orders 10/14/19 19:32 Patient Status [ADT] Routine Schedule Procedure [COMM] Stat - Assessment/Plan Last 24 Hours: My Active Orders 10/14/19 19:32 Patient Status [ADT] Routine Schedule Procedure [COMM] Stat
[2019-10-14] MEDS ORDERED: Metoclopramide 10 MG/2 ML SDV IVPUSH ONE (18:04)
[2019-10-14] MEDS ORDERED: HYDROmorphone 0.5 MG/0.5 ML Syringe IVPUSH ONE (18:04)
[2019-10-14] MEDS ORDERED: Glucagon,Human Recombinant 1 MG Vial IVPUSH ONE (18:04)
[2019-10-14] MEDS ORDERED: Lactated Ringers 1,000 ML IV SCH (19:30)
--- NOTE | 2019-10-14 19:52 | PCM.HP.2 ---
H&P History of Present Illness - General Date of Service: 10/14/19 Admit Problem/Dx: Admission Diagnosis/Problem Admission Diagnosis/Problem Foreign body in esophagus Source of Information: Patient History Limitations: Reports: No Limitations - History of Present Illness Initial Comments - Free Text/Narative: Patient has Parkinson's disease. She reports that she was eating almonds earlier today and one got stuck in her throat. This happened around 1 pm today. Since then she has been unable to swallow anything including water and she had developed throat pain. No nausea or vomiting. She is not having sialorrhea. Onset of Symptoms: Reports: Today Duration of Symptoms: Reports: Hour(s): (6) Location: Reports: Neck Quality: Reports: Sharp Severity: Severe Improves with: Reports: None Worsens with: Reports: Eating Associated Symptoms: Reports: No Other Symptoms Throat Pain Score (Numeric/FACES): 10 - Related Data Allergies/Adverse Reactions: Allergies Allergy/AdvReac Type Severity Reaction Status Date / Time No Known Allergies Allergy Verified 10/14/19 17:30 Home Medications: Home Meds Aspirin 81 mg PO DAILY 11/30/16 [History] Multivitamin [Multivitamins] 1 each PO DAILY 07/10/17 [History] Denosumab [Prolia] 60 mg SQ ASDIRECTED 04/24/19 [History] Past Medical History HEENT History: Reports: Macular Degeneration Cardiovascular History: Reports: None Respiratory History: Reports: SOB Gastrointestinal History: Reports: Chronic Constipation, Other (See Below) Other Gastrointestinal History: inguinal hernia Genitourinary History: Reports: UTI, 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 Musculoskeletal History: Reports: Other (See Below) Neurological History: Reports: Neuropathy, Peripheral, Parkinson's Other Neuro History: compression fractures to spine Psychiatric History: Reports: None Endocrine/Metabolic History: Reports: Osteoporosis, Vitamin D Deficiency Hematologic History: Reports: None Immunologic History: Reports: None Oncologic (Cancer) History: Reports: None Dermatologic History: Reports: Other (See Below) Other Dermatologic History: skins spots to patient's back - Infectious Disease History Infectious Disease History: Reports: None - Past Surgical History HEENT Surgical History: Reports: Cataract Surgery Musculoskeletal Surgical History: Reports: Knee Replacement, Other (See Below) Other Musculoskeletal Surgeries/Procedures:: RTKR Social & Family History - Family History Family Medical History: Noncontributory - Tobacco Use Smoking Status *Q: Never Smoker - Caffeine Use Caffeine Use: Reports: Soda - Recreational Drug Use Recreational Drug Use: No - Living Situation & Occupation Living situation: Reports: Occupation: Retired H&P Review of Systems - Review of Systems: Review Of Systems: See Below General: Reports: No Symptoms HEENT: Reports: Other (throat pain) Pulmonary: Reports: No Symptoms Cardiovascular: Reports: No Symptoms Gastrointestinal: Reports: No Symptoms Genitourinary: Reports: No Symptoms Musculoskeletal: Reports: No Symptoms Skin: Reports: No Symptoms Psychiatric: Reports: Other (Parkinson's disease) Neurological: Reports: Gait Disturbance Exam - Exam Exam: See Below - Vital Signs Vital Signs: Last Vital Signs Temp 97.5 F 10/14/19 17:28 Pulse 70 10/14/19 17:28 Resp 16 10/14/19 17:28 BP 164/87 H 10/14/19 17:28 Pulse Ox 96 10/14/19 17:28 Weight: 50.349 kg - Exam General: Alert, Oriented, Cooperative HEENT: Conjunctiva Clear Neck: Supple, Trachea Midline, Other (no crepitus or lymphadenopathy) Lungs: Clear to Auscultation Cardiovascular: Regular Rate, Regular Rhythm, Normal S1, Normal S2 GI/Abdominal Exam: Soft, Non-Tender, No Organomegaly, No Distention, No Abnormal Bruit - Patient Data Lab Results Last 24 hrs: Laboratory Results - last 24 hr 10/14/19 Range/Units 19:02 COVID-19 ([facility]) Negative (NEGATIVE) Sepsis Event Note - Evaluation Sepsis Screening Result: No Definite Risk - Focused Exam Vital Signs: Vital Signs Temp Pulse Resp BP Pulse Ox 10/14/19 17:28 97.5 F 70 16 164/87 H 96 Problem List Initiated/Reviewed/Updated: No Orders Last 24hrs: Active Orders 24 hr Category Date Time Status Patient Status [ADT] Routine ADT 10/14/19 19:32 Active Lactated Ringers [Ringers, Lactated] 1,000 ml Med 10/14/19 19:30 Active IV ASDIRECTED Schedule Procedure [COMM] Stat Oth 10/14/19 19:32 Ordered Medication Orders Lactated Ringer's (Ringers, Lactated) 1,000 mls @ 125 mls/hr IV ASDIRECTED [facility] Last Admin: 10/14/19 19:33 Dose: 125 mls/hr Documented by: JOHN Assessment/Plan Comment:: Patient has a concern for esophageal foreign body. I recommended an EGD with disimpaction and possible dilation. I discussed with her risks, benefits and alternatives. Risks discussed include bleeding, perforation, reaction to medic ations, injury to nearly structures. Patient understood and agreed to proceed with the procedure. Informed consent was obtained.
[2019-10-14] MEDS ORDERED: Lidocaine 4% Top Soln 50 ML Bottle ONE (20:05)
[2019-10-14] MEDS ORDERED: Propofol 200 MG/20 ML SDV ONE (20:09)
[2019-10-14] MEDS ORDERED: Glycopyrrolate 0.2 MG/ML SDV ONE (20:17)
[2019-10-14] MEDS ORDERED: Dexamethasone 4 MG/ML SDV ONE (21:06)
[2019-10-14] MEDS ORDERED: Acetaminophen 325 MG Tab PO PRN (21:41)
[2019-10-14] MEDS ORDERED: fentaNYL 100 MCG/2 ML SDV IVPUSH PRN (21:48)
[2019-10-14] MEDS ORDERED: Ondansetron 4 MG/2 ML SDV IVPUSH PRN (21:48)
--- NOTE | 2019-10-14 21:53 | PCM.PREANE ---
Preanesthetic Assessment - Procedure Proposed Procedure: EGD Foreign Body Removal - Anesthesia/Transfusion/Family Hx Anesthesia History: Prior Anesthesia Reaction Type of Anesthesia Reaction: Excessive Somnolence, Excessive Nausea/Vomiting, Other (see below) (Seizure) Type of Transfusion Reactions: Reports: Unknown - Review of Systems General: No Symptoms Pulmonary: No Symptoms Cardiovascular: Dyspnea on Exertion Gastrointestinal: Difficulty Swallowing Neurological: Tremors, Weakness, Gait Disturbance, Other (Parkinsons) Other: Reports: None - Physical Assessment NPO Status Date: 10/14/19 NPO Status Time: 13:00 Vital Signs: Last Vital Signs Temp 36.4 C 10/14/19 17:28 Pulse 70 10/14/19 17:28 Resp 16 10/14/19 17:28 BP 164/87 H 10/14/19 17:28 Pulse Ox 96 10/14/19 17:28 Height: 1.63 m Weight: 50.349 kg ASA Class: 3E Mental Status: Alert & Oriented x3 Airway Class: Mallampati = 2 Dentition: Reports: Caries Thyro-Mental Finger Breadths: 2 Mouth Opening Finger Breadths: 2 ROM/Head Extension: Limited/Partial (Chronic Neck Pain) Lungs: Decreased Breath Sounds Cardiovascular: Regular Rate, Regular Rhythm - Lab Values: Laboratory Last Values COVID-19 ([facility]) Negative (NEGATIVE) 10/14/19 19:02 - Allergies Allergies/Adverse Reactions: Allergies Allergy/AdvReac Type Severity Reaction Status Date / Time No Known Allergies Allergy Verified 10/14/19 17:30 - Acknowledgements Anesthesia Type Planned: MAC Pt an Appropriate Candidate for the Planned Anesthesia: Yes Alternatives and Risks of Anesthesia Discussed w Pt/Guardian: Yes Pt/Guardian Understands and Agrees with Anesthesia Plan: Yes Additional Comments: Maite has a history of difficulty tolerating anesthesia. She would prefer to have no anesthesia if possible. I spoke with Dr. Hood regarding her concerns and request. Proceed with topical lidocaine spray to posterior oropharynx if unable to tolerate will convert to general anesthetic. Maite agrees with the plan and has verbalized understanding. 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 Musculoskeletal History: Reports: Other (See Below) Neurological History: Reports: Neuropathy, Peripheral, Parkinson's Other Neuro History: compression fractures to spine Psychiatric History: Reports: None Endocrine/Metabolic History: Reports: Osteoporosis, Vitamin D Deficiency Hematologic History: Reports: None Immunologic History: Reports: None Oncologic (Cancer) History: Reports: None Dermatologic History: Reports: Other (See Below) Other Dermatologic History: skins spots to patient's back - Infectious Disease History Infectious Disease History: Reports: None - Past Surgical History HEENT Surgical History: Reports: Cataract Surgery Musculoskeletal Surgical History: Reports: Knee Replacement, Other (See Below) Other Musculoskeletal Surgeries/Procedures:: RTKR - SUBSTANCE USE Smoking Status *Q: Never Smoker Recreational Drug Use History: No - HOME MEDS Home Medications: Home Meds Aspirin 81 mg PO DAILY 11/30/16 [History] Multivitamin [Multivitamins] 1 each PO DAILY 07/10/17 [History] Denosumab [Prolia] 60 mg SQ ASDIRECTED 04/24/19 [History] - CURRENT (IN HOUSE) MEDS Current Meds: Current Medications Acetaminophen (Tylenol) 650 mg PO Q4H PRN PRN Reason: analgesia/fever Lactated Ringer's (Ringers, Lactated) 1,000 mls @ 125 mls/hr IV ASDIRECTED [facility] Last Admin: 10/14/19 19:33 Dose: 125 mls/hr Documented by: Discontinued Medications Dexamethasone (Dexamethasone) Confirm Administered Dose 8 mg .ROUTE .STK-MED ONE Stop: 10/14/19 21:07 Glucagon (Glucagen) 1 mg IVPUSH ONETIME ONE Stop: 10/14/19 18:05 Last Admin: 10/14/19 18:31 Dose: 1 mg Documented by: Glycopyrrolate (Robinul) Confirm Administered Dose 0.2 mg .ROUTE .STK-MED ONE Stop: 10/14/19 20:18 Hydromorphone HCl (Dilaudid) 0.25 mg IVPUSH ONETIME ONE Stop: 10/14/19 18:05 Last Admin: 10/14/19 18:15 Dose: 0.25 mg Documented by: Lidocaine HCl (Xylocaine 4% Top Soln) Confirm Administered Dose 50 ml .ROUTE .STK-MED ONE Stop: 10/14/19 20:06 Metoclopramide HCl (Reglan) 5 mg IVPUSH ONETIME ONE Stop: 10/14/19 18:05 Last Admin: 10/14/19 18:15 Dose: 5 mg Documented by: Propofol (Diprivan 20 Ml) Confirm Administered Dose 200 mg .ROUTE .STK-MED ONE Stop: 10/14/19 20:10
--- NOTE | 2019-10-14 21:54 | PCM48HPAN ---
Post Anesthesia Note - EVALUATION WITHIN 48HRS OF ANESTHETIC Vital Signs in Normal Range: Yes Patient Participated in Evaluation: Yes Respiratory Function Stable: Yes Airway Patent: Yes Cardiovascular Function Stable: Yes Hydration Status Stable: Yes Pain Control Satisfactory: Yes Nausea and Vomiting Control Satisfactory: Yes Mental Status Recovered: Yes Vital Signs: Last Vital Signs Temp 36.4 C 10/14/19 17:28 Pulse 70 10/14/19 17:28 Resp 16 10/14/19 17:28 BP 164/87 H 10/14/19 17:28 Pulse Ox 96 10/14/19 17:28 2141 124/90 72 18 94% 98.1F
--- NOTE | 2019-10-14 22:59 | PROC ---
DATE OF OPERATION: 10/14/2019 SURGEON: Richard Hood MD PREOPERATIVE DIAGNOSIS: Esophageal foreign body. POSTOPERATIVE DIAGNOSIS: Esophageal foreign body. OPERATION: Esophagogastroduodenoscopy with foreign body removal. ESTIMATED BLOOD LOSS: Minimal. ANESTHESIA: Local anesthesia. COMPLICATIONS: None. INDICATION AND CONSENT: The patient is an 79-year-old who was eating walnuts this evening and had 1 stuck. The patient could not swallow any fluids after that. This happen about 1 p.m. today. The patient presented to the emergency department where she was still unable to swallow anything, and she had a lot of pain in the back of her throat. I talked to the patient and discussed that we may need to do an EGD to see if there is any foreign body there. I discussed risks, benefits, and alternatives. The patient agreed to proceed with the procedure. Informed consent was obtained. DETAILS OF PROCEDURE: The patient was taken to the procedure room, placed in supine position, and then local anesthesia consisting of Cetacaine and lidocaine was sprayed at the back of her throat as the patient is a slow metabolizer of anesthetic and did not want to have any anesthetic injected into her bloodstream. Therefore, after numbing the back of her throat, a block bite was placed, and then the scope was inserted. Right behind the epiglottis, behind the throat, there was a hard foreign body that appeared white and solid, consistent with a nut of some kind. We made every effort, we used coude catheters to try to use the balloon to pull out the foreign body. We used the endoscopic prong forceps to try to retrieve the foreign body. We used the regular forceps as well as a Solares Net. None of these were able to remove the foreign body. I tried to push the foreign body down into the throat. This was also unsuccessful. Therefore, eventually we used the balloon dilator that was passed past the foreign body. This was a 15 mm balloon dilator. Once it was passed behind the foreign body, distal to it, the balloon was insufflated with air, and the balloon was slowly pulled upwards, and I was able to dislodge the foreign body, and we used a Solares Net to catch the foreign body and remove it from the back of the mouth. The foreign body was about 3 cm, and it was consistent with a walnut. Picture was taken from this. At this point, then the scope was inserted back into the mouth, and we went all the way to the second portion of duodenum, which was normal. 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 There were no other ulcers in the stomach. The esophagus otherwise appeared normal. The area of the impaction also appeared normal. There was no bleeding. There were no signs of perforation or devitalization of the mucosa. This area was not strictured. It was simply at the cricoid cartilage. It did not appear to be strictured. A regular scope was able to pass through that area without any problems. Once this was done, the stomach was suctioned out of any air, and the scope was removed. The patient will be allowed to start having clear liquids and stay overnight for monitoring and observation to make sure she does not develop worsening neck pain or esophageal pain. Once the patient is doing well, the patient can be discharged home tomorrow. MMSALLY /[id number] MICKY
[2019-10-15 09:18] VITALS: BP 128/102; PULSE 68
--- NOTE | 2019-10-16 08:28 | PCM.PN ---
- General Info Date of Service: 10/15/19 Admission Dx/Problem (Free Text): Esophageal foreign body Subjective Update: Patient was able to swallow clears, throat pain has greatly diminished. Neck pain much better. She feels well. Functional Status: Reports: Pain Controlled, Tolerating Diet Pain Score: 2 - Review of Systems General: Reports: No Symptoms HEENT: Reports: No Symptoms Pulmonary: Reports: No Symptoms Cardiovascular: Reports: No Symptoms Gastrointestinal: Reports: No Symptoms Genitourinary: Reports: No Symptoms Musculoskeletal: Reports: No Symptoms - Patient Data Vitals - Most Recent: Last Vital Signs Temp 97.5 F 10/15/19 07:34 Pulse 68 10/15/19 07:34 Resp 16 10/15/19 07:34 BP 128/102 H 10/15/19 07:34 Pulse Ox 93 L 10/15/19 07:34 Weight - Most Recent: 50.349 kg Med Orders - Current: Current Medications Discontinued Medications Acetaminophen (Tylenol) 650 mg PO Q4H PRN PRN Reason: analgesia/fever Dexamethasone (Dexamethasone) Confirm Administered Dose 8 mg .ROUTE .STK-MED ONE Stop: 10/14/19 21:07 Fentanyl (Sublimaze) 50 mcg IVPUSH Q5M PRN PRN Reason: Pain Glucagon (Glucagen) 1 mg IVPUSH ONETIME ONE Stop: 10/14/19 18:05 Last Admin: 10/14/19 18:31 Dose: 1 mg Documented by: Glycopyrrolate ([place]) Confirm Administered Dose 0.2 mg .ROUTE .STK-MED ONE Stop: 10/14/19 20:18 Hydromorphone HCl (Dilaudid) 0.25 mg IVPUSH ONETIME ONE Stop: 10/14/19 18:05 Last Admin: 10/14/19 18:15 Dose: 0.25 mg Documented by: Lactated Ringer's (Ringers, Lactated) 1,000 mls @ 125 mls/hr IV ASDIRECTED [facility] Last Admin: 10/14/19 19:33 Dose: 125 mls/hr Documented by: Lidocaine HCl (Xylocaine 4% Top Soln) Confirm Administered Dose 50 ml .ROUTE .STK-MED ONE Stop: 10/14/19 20:06 Metoclopramide HCl (Reglan) 5 mg IVPUSH ONETIME ONE Stop: 10/14/19 18:05 Last Admin: 10/14/19 18:15 Dose: 5 mg Documented by: Ondansetron HCl (Zofran) 4 mg IVPUSH ONETIME PRN PRN Reason: Nausea/Vomiting Propofol (Diprivan 20 Ml) Confirm Administered Dose 200 mg .ROUTE .STK-MED ONE Stop: 10/14/19 20:10 - Exam General: Alert, Oriented, Cooperative Neck: Supple, Other (no crepitus or neck pain, no lymphadenopathy) Lungs: Normal Respiratory Effort Cardiovascular: Regular Rate, Regular Rhythm GI/Abdominal Exam: Soft, Non-Tender, No Organomegaly, No Distention Sepsis Event Note - Evaluation Sepsis Screening Result: No Definite Risk - Problem List Review Problem List Initiated/Reviewed/Updated: No - My Orders Last 24 Hours: My Active Orders 10/15/19 09:25 Resuscitation Status Routine - Assessment Assessment:: patient is POD1 s/p EGD with esophageal FB disimpaction. No esophageal st ricture. 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 Doing well - Plan Plan:: Ok to discharge home this AM. Can resume regular diet. Follow up with PCP in 1-2 weeks.
--- NOTE | 2019-10-22 17:50 | PCM.DCSUM1 ---
Discharge Summary - Hospital Course Free Text/Narrative:: Patient presented with esophageal FB impaction. This was removed endoscopically. Patient was observed overnight and did well. She is discharged to home in stable condition. Diagnosis: Stroke: No - Discharge Data Discharge Date: 10/15/19 Discharge Disposition: Home, Self-Care 01 Condition: Good - Referral to Home Health Primary Care Physician: PCP None - Patient Instructions Diet: Regular Diet as Tolerated Activity: As Tolerated Showering/Bathing: May Shower Notify Provider of: Fever, Increased Pain - Discharge Plan *PRESCRIPTION DRUG MONITORING PROGRAM REVIEWED*: Not Applicable *COPY OF PRESCRIPTION DRUG MONITORING REPORT IN PATIENT JEANINE: Not Applicable Home Medications: Home Meds Aspirin 81 mg PO DAILY 11/30/16 [History] Multivitamin [Multivitamins] 1 each PO DAILY 07/10/17 [History] Denosumab [Prolia] 60 mg SQ ASDIRECTED 04/24/19 [History] Oxygen Therapy Mode: Room Air Patient Handouts: Upper Endoscopy, Adult, Care After Referrals: Mallika Mao NP [Ordering Only Provider] - (please call and schedule a follow up appointment within 7-10 days) - Discharge Summary/Plan Comment DC Time >30 min.: No - General Info Date of Service: 10/15/19 Admission Dx/Problem (Free Text: Esophageal foreign body Subjective Update: Patient was able to swallow clears, throat pain has greatly diminished. Neck pain much better. She feels well. Functional Status: Reports: Pain Controlled, Tolerating Diet, Ambulating - Review of Systems General: Reports: No Symptoms HEENT: Reports: No Symptoms Pulmonary: Reports: No Symptoms Cardiovascular: Reports: No Symptoms Gastrointestinal: Reports: No Symptoms Genitourinary: Reports: No Symptoms, Hematuria Skin: Reports: No Symptoms Neurological: Reports: No Symptoms - Patient Data Vitals - Most Recent: Last Vital Signs Temp 97.5 F 10/15/19 07:34 Pulse 68 10/15/19 07:34 Resp 16 10/15/19 07:34 BP 128/102 H 10/15/19 07:34 Pulse Ox 93 L 10/15/19 07:34 Weight - Most Recent: 50.349 kg Med Orders - Current: Current Medications Discontinued Medications Acetaminophen (Tylenol) 650 mg PO Q4H PRN PRN Reason: analgesia/fever Dexamethasone (Dexamethasone) Confirm Administered Dose 8 mg .ROUTE .STK-MED ONE Stop: 10/14/19 21:07 Fentanyl (Sublimaze) 50 mcg IVPUSH Q5M PRN PRN Reason: Pain Glucagon (Glucagen) 1 mg IVPUSH ONETIME ONE Stop: 10/14/19 18:05 Last Admin: 10/14/19 18:31 Dose: 1 mg Documented by: Glycopyrrolate (Robinul) Confirm Administered Dose 0.2 mg .ROUTE .STK-MED ONE Stop: 10/14/19 20:18 Hydromorphone HCl (Dilaudid) 0.25 mg IVPUSH ONETIME ONE Stop: 10/14/19 18:05 Last Admin: 10/14/19 18:15 Dose: 0.25 mg Documented by: Lactated Ringer's (Ringers, Lactated) 1,000 mls @ 125 mls/hr IV ASDIRECTED [facility] Last Admin: 10/14/19 19:33 Dose: 125 mls/hr Documented by: Lidocaine HCl (Xylocaine 4% Top Soln) Confirm Administered Dose 50 ml .ROUTE .STK-MED ONE Stop: 10/14/19 20:06 Metoclopramide HCl (Reglan) 5 mg IVPUSH ONETIME ONE Stop: 10/14/19 18:05 Last Admin: 10/14/19 18:15 Dose: 5 mg Documented by: Ondansetron HCl (Zofran) 4 mg IVPUSH ONETIME PRN PRN Reason: Nausea/Vomiting Propofol (Diprivan 20 Ml) Confirm Administered Dose 200 mg .ROUTE .STK-MED ONE Stop: 10/14/19 20:10 - Exam General: Reports: Alert, Oriented Neck: Reports: Supple, Other (no pain, no crepitus) Lungs: Reports: Clear to Auscultation, Normal Respiratory Effort Cardiovascular: Reports: Regular Rate, Regular Rhythm, No Murmurs GI/Abdominal Exam: Soft, Non-Tender, No Organomegaly, No Distention
== END 2019-10-15 09:10 | disposition home or self-care (01) ==
LOC: JD.ED 17:16 → JD.SDS 19:35 → JD.MS 21:41
PROVIDERS: ADMIT Surgery; ATTEND Surgery
DX: T18.128A Food in esophagus causing other injury, initial encounter (principal); K44.9 Diaphragmatic hernia without obstruction or gangrene; E55.9 Vitamin D deficiency, unspecified; Z01.812 Encounter for preprocedural laboratory examination; Z20.828 Contact with and (suspected) exposure to other viral communicable diseases; Z79.82 Long term (current) use of aspirin; Z79.899 Other long term (current) drug therapy
CPT/HCPCS: 43247; A9270; J1100; J1170; J1610; J2765; J3490; J7120; U0002; 00731; 96374; 96375; 99284; G0378; J2704

== ENCOUNTER 2020-06-23 06:29 | Emergency (ER) | payer MEDICARE, OTHER ==
--- NOTE | 2020-06-23 07:29 | EDM.PDOC ---
ED HPI GENERAL MEDICAL PROBLEM - General Chief Complaint: Abdominal Pain Stated Complaint: ABDOMINAL/BACK PAIN Time Seen by Provider: 06/23/20 07:29 - History of Present Illness INITIAL COMMENTS - FREE TEXT/NARRATIVE: 80-year-old female presents the emergency room with left flank and abdominal pain radiated into her groin. This pain started on Sunday and is progressively getting worse. She is not had any associated fevers and chills at times she has some nausea with it. No vomiting she is not noticed any blood in her urine. No diarrhea or bloody stools. She did not have a BM yesterday. Patient denies any other complaints at this time. Patient currently is taking Prolia and a baby aspirin a day. Left Lower Abdomen Pain Score (Numeric/FACES): 10 - Related Data Allergies Allergy/AdvReac Type Severity Reaction Status Date / Time No Known Allergies Allergy Verified 06/23/20 06:42 Home Meds: Home Meds Aspirin 81 mg PO DAILY 11/30/16 [History] Multivitamin [Multivitamins] 1 each PO DAILY 07/10/17 [History] Denosumab [Prolia] 60 mg SQ ASDIRECTED 04/24/19 [History] Past Medical History HEENT History: Reports: Macular Degeneration Cardiovascular History: Reports: SOB on Exertion Other Cardiovascular History: Dilated aorta Respiratory History: Reports: SOB Gastrointestinal History: Reports: Chronic Constipation, Other (See Below) Other Gastrointestinal History: inguinal hernia Genitourinary History: Reports: UTI, Recurrent 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 Musculoskeletal History: Reports: Osteoporosis Neurological History: Reports: Neuropathy, Peripheral, Parkinson's Other Neuro History: compression fractures to spine Psychiatric History: Reports: None Endocrine/Metabolic History: Reports: Osteoporosis, Vitamin D Deficiency Hematologic History: Reports: None Immunologic History: Reports: None Oncologic (Cancer) History: Reports: None Dermatologic History: Reports: Other (See Below) Other Dermatologic History: skins spots to patient's back - Infectious Disease History Infectious Disease History: Reports: None - Past Surgical History HEENT Surgical History: Reports: Cataract Surgery GI Surgical History: Reports: EGD Musculoskeletal Surgical History: Reports: Knee Replacement, Other (See Below) Other Musculoskeletal Surgeries/Procedures:: RTKR Social & Family History - Family History Family Medical History: No Pertinent Family History - Tobacco Use Tobacco Use Status *Q: Never Tobacco User - Caffeine Use Caffeine Use: Reports: Soda - Recreational Drug Use Recreational Drug Use: No - Living Situation & Occupation Living situation: Reports: Occupation: Retired ED ROS GENERAL - Review of Systems Review Of Systems: See Below Constitutional: Reports: No Symptoms HEENT: Reports: No Symptoms Respiratory: Reports: No Symptoms Cardiovascular: Reports: No Symptoms GI/Abdominal: Reports: Abdominal Pain, Constipation. Denies: Black Stool, Bloody Stool, Diarrhea : Reports: Flank Pain. Denies: Dysuria, Frequency, Urgency Musculoskeletal: Reports: No Symptoms, Other (She is having flank pain this is thought to be related to her abdominal discomfort) ED EXAM, GI/ABD - Physical Exam Exam: See Below Exam Limited By: No Limitations General Appearance: Alert, Mild Distress (From the pain and discomfort) Head: Atraumatic, Normocephalic Neck: Normal Inspection, Supple, Non-Tender, Full Range of Motion. No: Lymphadenopathy (L), Lymphadenopathy (R) Respiratory/Chest: No Respiratory Distress, Lungs Clear, Normal Breath Sounds Cardiovascular: Regular Rate, Rhythm, No Edema, No Murmur GI/Abdominal Exam: Normal Bowel Sounds, Soft, Other (She has discomfort along the left abdomen. This is not worsened with palpation no rigidity rebound or guarding appreciated) Back Exam: Normal Inspection. No: CVA Tenderness (L), CVA Tenderness (R) Extremities: Normal Inspection, No Pedal Edema Neurological: Alert, Oriented, Normal Cognition Course - Vital Signs Last Recorded V/S: Last Vital Signs Temp 36.6 C 06/23/20 06:39 Pulse 80 06/23/20 06:39 Resp 16 06/23/20 06:39 BP 156/86 H 06/23/20 06:39 Pulse Ox 92 L 06/23/20 06:39 - Orders/Labs/Meds Orders: Active Orders 24 hr Category Date Time Status CULTURE URINE [RM] Stat Lab 06/23/20 07:20 Received Labs: Laboratory Tests 06/23/20 06/23/20 06/23/20 Range/Units 06:50 06:50 07:20 WBC 7.58 (3.98-10.04) K/mm3 RBC 4.73 (3.98-5.22) M/mm3 Hgb 14.5 (11.2-15.7) gm/dl Hct 43.3 (34.1-44.9) % MCV 91.5 (79.4-94.8) fl MCH 30.7 (25.6-32.2) pg MCHC 33.5 (32.2-35.5) g/dl RDW Std Deviation 44.5 (36.4-46.3) fL Plt Count 180 L (182-369) K/mm3 MPV 10.4 (9.4-12.3) fl Neut % (Auto) 74.8 H (34.0-71.1) % Lymph % (Auto) 16.5 L (19.3-51.7) % [place] % (Auto) 7.0 (4.7-12.5) % Eos % (Auto) 1.6 (0.7-5.8) Baso % (Auto) 0.1 (0.1-1.2) % Neut # (Auto) 5.67 (1.56-6.13) K/mm3 Lymph # (Auto) 1.25 (1.18-3.74) K/mm3 [place] # (Auto) 0.53 H (0.24-0.36) K/mm3 Eos # (Auto) 0.12 (0.04-0.36) K/mm3 Baso # (Auto) 0.01 (0.01-0.08) K/mm3 Sodium 141 (136-145) mEq/L Potassium 3.4 L (3.5-5.1) mEq/L Chloride 105 (98-107) mEq/L Carbon Dioxide 23 (21-32) mEq/L Anion Gap 16.4 H (5-15) BUN 19 H (7-18) mg/dL Creatinine 1.4 H (0.55-1.02) mg/dL Est Cr Clr Drug Dosing 26.92 mL/min Estimated GFR (MDRD) 36 (>60) mL/min BUN/Creatinine Ratio 13.6 L (14-18) Glucose 109 H (70-99) mg/dL Calcium 8.3 L (8.5-10.1) mg/dL Total Bilirubin 0.9 (0.2-1.0) mg/dL AST 17 (15-37) U/L ALT 18 (14-59) U/L Alkaline Phosphatase 85 (46-116) U/L C-Reactive Protein 0.7 (<1.0) mg/dL Total Protein 7.0 (6.4-8.2) g/dl Albumin 3.6 (3.4-5.0) g/dl Globulin 3.4 gm/dL Albumin/Globulin Ratio 1.1 (1-2) Urine Color Yellow (Yellow) Urine Appearance Slt cloudy H (Clear) Urine pH 6.0 (5.0-8.0) Ur Specific [place] 1.025 (1.005-1.030) Urine Protein 2+ H (Negative) Urine Glucose (UA) Negative (Negative) Urine Ketones Negative (Negative) Urine Occult Blood 3+ H (Negative) Urine Nitrite Negative (Negative) Urine Bilirubin Negative (Negative) Urine Urobilinogen 0.2 (0.2-1.0) Ur Leukocyte Esterase 1+ H (Negative) Urine RBC >100 H (0-5) /hpf Urine WBC 5-10 H (0-5) /hpf Ur Squamous Epith Cells 5-10 H (0-5) /hpf Amorphous Sediment Many H (NOT SEEN) /hpf Urine Bacteria Moderate H (FEW) /hpf Urine Mucus Not seen (FEW) /hpf Meds: Medications Discontinued Medications Generic Name Dose Route Start Last Admin Trade Name Freq PRN Reason Stop Dose Admin Fentanyl 50 mcg 06/23/20 08:05 06/23/20 08:12 Fentanyl 100 Mcg/2 Ml Sdv IVPUSH 06/23/20 08:06 50 mcg ONETIME ONE Administration Ondansetron HCl 4 mg 06/23/20 08:05 06/23/20 08:12 Ondansetron 4 Mg/2 Ml Sdv IVPUSH 06/23/20 08:06 4 mg ONETIME ONE Administration Potassium Chloride 40 meq 06/23/20 09:52 Potassium Chloride 20 Meq Tab.Er PO 06/23/20 09:53 ONETIME ONE - Re-Assessments/Exams Free Text/Narrative Re-Assessment/Exam: 06/23/20 08:32 Labs are remarkable for mild renal insufficiency creatinine 1.4 mild hypokalemia potassium 3.4 urinalysis shows 1+ leukocyte esterase 3+ blood. I have ordered a CT KUB. 06/23/20 09:49 CT shows 2 obstructing stones in the left proximal ureter the largest and most proximal is .9-1.2 cm the smaller stone is 4.5 mm 06/23/20 10:10 I discussed the patient's case with 1 call at [facility] in [place]. Dr. Fountain is on-call but is in surgery and request the patient be sent through the emergency room. Case was then discussed with Dr. Hernández in ER who kindly accepts the patient in transfer. Departure - Departure Time of Disposition: 10:17 Disposition: DC/Tfer to [facility] 02 Clinical Impression: Calculus of left kidney - Discharge Information Referrals: Mallika Mao NP [Primary Care Provider] - Forms: ED Department Discharge Sepsis Event Note (ED) - Evaluation Sepsis Screening Result: No Definite Risk - Focused Exam Vital Signs: Vital Signs Temp Pulse Resp BP Pulse Ox 06/23/20 06:39 36.6 C 80 16 156/86 H 92 L - My Orders Last 24 Hours: My Active Orders 06/23/20 07:20 CULTURE URINE [RM] Stat - Assessment/Plan Last 24 Hours: My Active Orders 06/23/20 07:20 CULTURE URINE [RM] Stat
[2020-06-23] MEDS ORDERED: Ondansetron 4 MG/2 ML SDV IVPUSH ONE (08:05)
[2020-06-23] MEDS ORDERED: fentaNYL 100 MCG/2 ML SDV IVPUSH ONE (08:05)
--- NOTE | 2020-06-23 08:53 | CT ---
CT abdomen and pelvis Technique: Multiple axial sections were obtained from above the dome of the diaphragm inferiorly through the pubic symphysis. Intravenous and oral contrast were not utilized. Reconstructed coronal and sagittal images were also obtained. Comparison: No prior CT abdomen or pelvis study is available. Findings: Visualized lung bases show slight atelectasis. Liver shows a small low-density lesion within the anterior right lobe measuring 1.0 cm which is compatible with a small cyst. Gallbladder contains no calcified gallstones. Spleen size is normal. Pancreas shows no discrete abnormality. Left kidney shows two obstructing calculi within the proximal left ureter around the UPJ. Largest calculus measures 9 mm and smaller calculus measures 4.5 mm. Other smaller nonobstructing calculi are seen within both kidneys. Largest stone on the right side measures about 1.2 cm. No additional ureteral calculi are appreciated. Abdominal aorta shows atherosclerotic change. No aneurysm is seen. No retroperitoneal adenopathy or mesenteric abnormalities are noted. Right inguinal hernia is seen which contains a small loop of bowel. No bowel dilatation is appreciated. Focal increased stool is seen within the sigmoid colon. Appendix is not definitely visualized. Bone window settings were reviewed which show scoliosis within the spine. Mild compression deformity of T12 is seen which is most likely old. Degenerative change is noted within the discs and within the apophyseal joints. Impression: 1. Two obstructing calculi within the proximal left ureter around the UPJ with measurements as noted above. 2. Nonobstructing calculi within both kidneys. 3. Right inguinal hernia containing a loop of nondilated bowel. 4. Increased stool within the sigmoid colon. Diagnostic code #3
[2020-06-23] MEDS ORDERED: Potassium Chloride 20 MEQ Tab.ER PO ONE (09:52)
[2020-06-23] MEDS ORDERED: cefTRIAXone 1 GM in Sodium Chloride 0.9% 100 ML IV SCH (10:15)
[2020-06-23] MEDS ORDERED: Lactated Ringers 1,000 ML IV SCH (10:30)
[2020-06-23 10:57] VITALS: BP 143/96; PULSE 90
== END 2020-06-23 10:55 ==
LOC: JD.ED 06:29
DX: N20.2 Calculus of kidney with calculus of ureter (principal); G62.9 Polyneuropathy, unspecified; G20 Parkinson's disease; E87.6 Hypokalemia; Z20.822 Contact with and (suspected) exposure to COVID-19; Z79.82 Long term (current) use of aspirin
CPT/HCPCS: 36415; 74176; 74176-26; 80053; 81001; 85025; 86140; 87086; 96365; 96375; 99284; 99285-25; A9270-GY; J0696; J2405; J3010; J7120; U0002

== ENCOUNTER 2023-08-17 10:41 | Emergency (ER) | payer MEDICARE, OTHER ==
[2023-08-17] MEDS: Acetaminophen/oxyCODONE 325-5 MG Tab PO ONE (12:02)
[2023-08-17 16:12] VITALS: BP 104/62; PULSE 69
== END 2023-08-17 16:05 | disposition home or self-care (01) ==
LOC: JD.ED 10:41
DX: M25.552 Pain in left hip (principal); W01.110A Fall on same level from slipping, tripping and stumbling with subsequent striking against sharp glass, initial encounter
CPT/HCPCS: 72192; 73502; 99284; A9270

== ENCOUNTER 2023-09-03 12:30 | Emergency (ER) | payer MEDICARE, OTHER ==
[2023-09-03 12:46] VITALS: PULSE 76
[2023-09-03] MEDS ORDERED: Sodium Chloride 0.9% 10 ML Syringe FLUSH PRN (13:21)
[2023-09-03] MEDS: Sodium Chloride 0.9% 1,000 ML IV SCH (14:35)
[2023-09-03 14:43] LABS: BASOPHILS PERCENT AUTO 0.5 % (0.0-1.0); EOSINOPHILS ABSOLUTE AUTO 0.1 K/mm3 (0.0-0.4); EOSINOPHILS PERCENT AUTO 1.4 % (0.0-6.0); HEMATOCRIT 39.5 % (37.0-47.0); HEMOGLOBIN 13.2 gm/dl (12.0-16.0); IMMATURE GRAN ABSOLUTE AUTO 0.01 K/mm3 (0.00-0.05); IMMATURE GRAN PERCENT AUTO 0.2 % (0.0-0.4); LYMPHOCYTES ABSOLUTE AUTO 1.8 K/mm3 (1.0-4.8); LYMPHOCYTES PERCENT AUTO 30.9 % (24.0-44.0); MEAN CORPUSCULAR HEMOGLOBIN 31.5 pg (28.0-32.0); MEAN CORPUSCULAR HGB CONC 33.4 g/dl (32.0-36.0); MEAN CORPUSCULAR VOLUME 94.3 fl (83.0-99.0); MONOCYTES ABSOLUTE AUTO 0.4 K/mm3 (0.0-0.8); MONOCYTES PERCENT AUTO 6.8 % (0.0-8.0); NEUTROPHILS ABSOLUTE AUTO 3.5 K/mm3 (1.8-7.7); NEUTROPHILS PERCENT AUTO 60.2 % (41.0-71.0); PLATELET COUNT,PLT 280 K/mm3 (150-400); RED BLOOD CELL COUNT 4.19 M/mm3 (4.10-5.30); WHITE BLOOD CELL COUNT,WBC 5.86 K/mm3 (3.9-11.3)
[2023-09-03 15:09] LABS: A/G RATIO 1.3 (1-2); ALBUMIN 3.8 g/dl (3.4-5.0); ANION GAP 13.4 (5-15); BILIRUBIN TOTAL 0.6 mg/dL (0.2-1.0); BUN/CREATININE RATIO 16.3 (14-18); CALCIUM 9.1 mg/dL (8.5-10.1); CREATININE 0.8 mg/dL (0.55-1.02); EST CRCL DRUG DOSING (CG) 42.81 mL/min; MAGNESIUM 2.4 mg/dL (1.8-2.4); POTASSIUM,K 3.4 mEq/L (3.5-5.1); PROTEIN TOTAL,TP 6.8 g/dl (6.4-8.2)
[2023-09-03] MEDS: Meclizine 25 MG Tab PO ONE (15:42)
[2023-09-03 15:45] VITALS: BP 159/108
== END 2023-09-03 16:48 | disposition home or self-care (01) ==
LOC: JD.ED 12:30
DX: S09.90XA Unspecified injury of head, initial encounter (principal); M54.2 Cervicalgia; R42 Dizziness and giddiness; W19.XXXA Unspecified fall, initial encounter
CPT/HCPCS: 36415; 70450; 72125; 80053; 83735; 84484; 85025; 93005; 96360; 99284; A9270; J7030

== ENCOUNTER 2024-01-12 09:20 | Inpatient (IN) | payer MEDICARE, OTHER ==
[2024-01-12] MEDS: HYDROmorphone 0.5 MG/0.5 ML Syringe IVPUSH ONE ×2 (09:58→11:40)
[2024-01-12] MEDS: Sodium Chloride 0.9% 10 ML Syringe FLUSH PRN (09:59)
[2024-01-12] MEDS: Sodium Chloride 0.9% 10 ML Syringe FLUSH ONE (09:59)
[2024-01-12 10:07] LABS: BASOPHILS PERCENT AUTO 0.2 % (0.0-1.0); EOSINOPHILS PERCENT AUTO 0.3 % (0.0-6.0); HEMATOCRIT 44.8 % (37.0-47.0); HEMOGLOBIN 14.7 gm/dl (12.0-16.0); IMMATURE GRAN ABSOLUTE AUTO 0.06 K/mm3 (0.00-0.05); IMMATURE GRAN PERCENT AUTO 0.5 % (0.0-0.4); LYMPHOCYTES ABSOLUTE AUTO 1.6 K/mm3 (1.0-4.8); LYMPHOCYTES PERCENT AUTO 13.6 % (24.0-44.0); MEAN CORPUSCULAR HEMOGLOBIN 30.2 pg (28.0-32.0); MEAN CORPUSCULAR HGB CONC 32.8 g/dl (32.0-36.0); MEAN PLATELET VOLUME 9.6 fl (9.4-12.3); MONOCYTES ABSOLUTE AUTO 0.5 K/mm3 (0.0-0.8); MONOCYTES PERCENT AUTO 4.1 % (0.0-8.0); NEUTROPHILS ABSOLUTE AUTO 9.8 K/mm3 (1.8-7.7); NEUTROPHILS PERCENT AUTO 81.3 % (41.0-71.0); PLATELET COUNT,PLT 199 K/mm3 (150-400); RED BLOOD CELL COUNT 4.87 M/mm3 (4.10-5.30); WHITE BLOOD CELL COUNT,WBC 11.99 K/mm3 (3.9-11.3)
[2024-01-12] MEDS: Iopamidol 612 MG/ML 100 ML Bottle IVPUSH ONE (10:11)
[2024-01-12 10:20] LABS: A/G RATIO 1.2 (1-2); ALANINE AMINOTRANSFERASE,ALT 13 U/L (14-59); ALBUMIN 3.9 g/dl (3.4-5.0); ALKALINE PHOSPHATASE 138 U/L (46-116); ANION GAP 15.7 (5-15); ASPARTATE AMNIOTRANSFERASE,AST 20 U/L (15-37); BILIRUBIN TOTAL 0.7 mg/dL (0.2-1.0); BLOOD UREA NITROGEN,BUN 14 mg/dL (7-18); BUN/CREATININE RATIO 12.7 (14-18); CALCIUM 8.9 mg/dL (8.5-10.1); CARBON DIOXIDE,CO2 24 mEq/L (21-32); CHLORIDE,CL 106 mEq/L (98-107); CREATININE 1.1 mg/dL (0.55-1.02); ESTIMATED GFR 50 mL/min (>60); GLUCOSE RANDOM 118 mg/dL (70-99); LIPASE 61 U/L (16-77); POTASSIUM,K 3.7 mEq/L (3.5-5.1); PROTEIN TOTAL,TP 7.1 g/dl (6.4-8.2); SODIUM,NA 142 mEq/L (136-145)
[2024-01-12] MEDS ORDERED: Sodium Chloride 0.9% 100 ML IV SCH (13:00)
[2024-01-12] MEDS: Iopamidol 755 Mg/ML 100 ML Bottle IVPUSH ONE (13:04)
[2024-01-12] MEDS: Ondansetron 4 MG/2 ML SDV IVPUSH ONE (14:04)
[2024-01-12] MEDS: Ketorolac 15 MG/ML SDV IVPUSH ONE (15:32)
[2024-01-12] MEDS: Acetaminophen 325 MG Tab PO SCH (17:29)
[2024-01-12] MEDS ORDERED: Diclofenac Sodium 1% Gel 100 GM Tube TOP PRN (19:07)
[2024-01-12] MEDS: oxyCODONE 5 MG Tab PO PRN (19:55)
[2024-01-12] MEDS: Diclofenac Sodium 1% Gel 100 GM Tube TOP SCH (20:03)
[2024-01-12] MEDS: Ondansetron 4 MG/2 ML SDV IV PRN (21:54)
[2024-01-12] MEDS ORDERED: Acetaminophen 325 MG Tab PO PRN (22:40)
[2024-01-12] MEDS: HYDROmorphone 0.5 MG/0.5 ML Syringe IVPUSH PRN (23:19)
[2024-01-13] MEDS: Ondansetron 4 MG/2 ML SDV IVPUSH PRN (03:20)
[2024-01-13] MEDS: oxyCODONE 5 MG Tab PO PRN (04:19)
[2024-01-13 05:29] LABS: HEMATOCRIT 39.2 % (37.0-47.0); IMMATURE GRAN ABSOLUTE AUTO 0.03 K/mm3 (0.00-0.05); IMMATURE GRAN PERCENT AUTO 0.3 % (0.0-0.4); LYMPHOCYTES ABSOLUTE AUTO 1.2 K/mm3 (1.0-4.8); LYMPHOCYTES PERCENT AUTO 12.8 % (24.0-44.0); MEAN CORPUSCULAR HEMOGLOBIN 30.1 pg (28.0-32.0); MEAN CORPUSCULAR HGB CONC 33.7 g/dl (32.0-36.0); MEAN CORPUSCULAR VOLUME 89.3 fl (83.0-99.0); MEAN PLATELET VOLUME 9.6 fl (9.4-12.3); MONOCYTES ABSOLUTE AUTO 0.5 K/mm3 (0.0-0.8); NEUTROPHILS ABSOLUTE AUTO 7.9 K/mm3 (1.8-7.7); NEUTROPHILS PERCENT AUTO 81.9 % (41.0-71.0); PLATELET COUNT,PLT 181 K/mm3 (150-400); RED BLOOD CELL COUNT 4.39 M/mm3 (4.10-5.30); WHITE BLOOD CELL COUNT,WBC 9.68 K/mm3 (3.9-11.3)
[2024-01-13 05:30] LABS: HEMOGLOBIN 13.2 gm/dl (12.0-16.0)
[2024-01-13 06:05] LABS: A/G RATIO 1.1 (1-2); ALBUMIN 3.4 g/dl (3.4-5.0); ANION GAP 14.5 (5-15); BILIRUBIN TOTAL 0.9 mg/dL (0.2-1.0); BUN/CREATININE RATIO 16.4 (14-18); CALCIUM 8.2 mg/dL (8.5-10.1); CREATININE 1.4 mg/dL (0.55-1.02); EST CRCL DRUG DOSING (CG) 23.66 mL/min; POTASSIUM,K 4.5 mEq/L (3.5-5.1); PROTEIN TOTAL,TP 6.5 g/dl (6.4-8.2)
[2024-01-13] MEDS: Ondansetron 4 MG/2 ML SDV IVPUSH ONE (06:52)
[2024-01-13] MEDS: Enoxaparin 30 MG/0.3 ML Syringe SUBCUT SCH (07:59)
[2024-01-13] MEDS ORDERED: Enoxaparin 40 MG/0.4 ML Syringe SUBCUT SCH ×2 (09:00)
[2024-01-13] MEDS: Acetaminophen 325 MG Tab PO PRN (14:30)
[2024-01-13] MEDS: Calcitonin (Salmon) Nasal Spray 3.7 ML Bottle NAS SCH (18:07)
[2024-01-13] MEDS: Sodium Chloride 0.9% 1,000 ML IV SCH (19:07)
[2024-01-14 06:25] LABS: A/G RATIO 1.2 (1-2); ALBUMIN 3.3 g/dl (3.4-5.0); ANION GAP 14.2 (5-15); BILIRUBIN TOTAL 0.9 mg/dL (0.2-1.0); BUN/CREATININE RATIO 27.3 (14-18); CALCIUM 7.6 mg/dL (8.5-10.1); CREATININE 1.1 mg/dL (0.55-1.02); EST CRCL DRUG DOSING (CG) 30.11 mL/min; POTASSIUM,K 4.2 mEq/L (3.5-5.1); PROTEIN TOTAL,TP 6.1 g/dl (6.4-8.2)
[2024-01-14] MEDS: Calcitonin (Salmon) Nasal Spray 3.7 ML Bottle NAS SCH (08:28)
[2024-01-14] MEDS: Calcium Carbonate 500 MG Tab.Chew PO PRN (08:28)
[2024-01-14] MEDS: Aluminum Hydroxide/Magnesium Hydroxide/Simethicone Susp 30 ML Cup PO PRN (08:52)
[2024-01-14] MEDS: Lidocaine 2% Viscous Solution 15 ML UD PO PRN (10:41)
[2024-01-14] MEDS ORDERED: Lactated Ringers 1,000 ML IV SCH (11:45)
[2024-01-14] MEDS: Lactated Ringers 500 ML IV ONE (12:25)
[2024-01-14] MEDS: Polyethylene Glycol 3350 Powder 17 GM Packet PO PRN (15:20)
[2024-01-14] MEDS: Furosemide 40 MG/4 ML VIAL IVPUSH ONE (17:25)
[2024-01-14] MEDS: Albuterol/Ipratropium 3.0-0.5 MG/3 ML Neb Soln NEB PRN (17:35)
[2024-01-15 06:51] LABS: ANION GAP 10.7 (5-15); CALCIUM 8.3 mg/dL (8.5-10.1); CREATININE 0.9 mg/dL (0.55-1.02); EST CRCL DRUG DOSING (CG) 36.8 mL/min; MAGNESIUM 2.3 mg/dL (1.8-2.4); PHOSPHORUS 2.4 mg/dL (2.6-4.7); POTASSIUM,K 3.7 mEq/L (3.5-5.1)
[2024-01-15] MEDS: Phosphorus #1 250 MG Tab PO ONE (08:41)
[2024-01-15] MEDS: Enoxaparin 40 MG/0.4 ML Syringe SUBCUT SCH (08:44)
[2024-01-15] MEDS ORDERED: traMADol 50 MG Tab PO PRN (12:05)
[2024-01-15] MEDS: traMADol 50 MG Tab PO PRN (18:12)
[2024-01-16 06:13] LABS: ANION GAP 13.2 (5-15); BUN/CREATININE RATIO 27.5 (14-18); CALCIUM 8.2 mg/dL (8.5-10.1); CREATININE 0.8 mg/dL (0.55-1.02); EST CRCL DRUG DOSING (CG) 41.4 mL/min; POTASSIUM,K 3.2 mEq/L (3.5-5.1)
[2024-01-16] MEDS ORDERED: Potassium Chloride 10 MEQ in Premix Bag 1 BAG IV SCH (07:30)
[2024-01-16] MEDS: Potassium Bicarbonate/Cit Ac 20 MEQ Effervescent Tab PO ONE (08:22)
[2024-01-16] MEDS: Docusate Sodium 100 MG Cap PO SCH (08:22)
[2024-01-16] MEDS: Lidocaine 4% 1 each Patch TOP PRN (17:00)
[2024-01-17] MEDS: Lactulose Soln 10 GM/15 ML 30 ML UD Cup PO SCH (12:09)
[2024-01-19 05:41] LABS: BASOPHILS PERCENT AUTO 0.3 % (0.0-1.0); EOSINOPHILS ABSOLUTE AUTO 0.3 K/mm3 (0.0-0.4); EOSINOPHILS PERCENT AUTO 3.8 % (0.0-6.0); HEMATOCRIT 40.3 % (37.0-47.0); HEMOGLOBIN 13.8 gm/dl (12.0-16.0); IMMATURE GRAN ABSOLUTE AUTO 0.04 K/mm3 (0.00-0.05); IMMATURE GRAN PERCENT AUTO 0.5 % (0.0-0.4); LYMPHOCYTES ABSOLUTE AUTO 2.3 K/mm3 (1.0-4.8); LYMPHOCYTES PERCENT AUTO 25.6 % (24.0-44.0); MEAN CORPUSCULAR HEMOGLOBIN 30.7 pg (28.0-32.0); MEAN CORPUSCULAR HGB CONC 34.2 g/dl (32.0-36.0); MEAN CORPUSCULAR VOLUME 89.8 fl (83.0-99.0); MEAN PLATELET VOLUME 9.8 fl (9.4-12.3); MONOCYTES ABSOLUTE AUTO 0.7 K/mm3 (0.0-0.8); MONOCYTES PERCENT AUTO 8.2 % (0.0-8.0); NEUTROPHILS ABSOLUTE AUTO 5.4 K/mm3 (1.8-7.7); NEUTROPHILS PERCENT AUTO 61.6 % (41.0-71.0); PLATELET COUNT,PLT 227 K/mm3 (150-400); RED BLOOD CELL COUNT 4.49 M/mm3 (4.10-5.30); WHITE BLOOD CELL COUNT,WBC 8.79 K/mm3 (3.9-11.3)
[2024-01-19 06:11] LABS: ANION GAP 15.9 (5-15); BUN/CREATININE RATIO 27.3 (14-18); CALCIUM 9.1 mg/dL (8.5-10.1); CREATININE 1.1 mg/dL (0.55-1.02); EST CRCL DRUG DOSING (CG) 30.11 mL/min; POTASSIUM,K 3.9 mEq/L (3.5-5.1)
[2024-01-20] MEDS: Sodium Chloride 0.65% Nasal Spray 45 ML Bottle NAS PRN (08:32)
[2024-01-20] MEDS: Polyethylene Glycol 3350 Powder 17 GM Packet PO SCH (08:33)
[2024-01-20] MEDS ORDERED: Sennosides 8.6 MG Tab PO PRN (13:17)
[2024-01-24 05:58] VITALS: BP 122/81; PULSE 82
== END 2024-01-24 07:00 | DRG 551 ==
LOC: JD.ED 09:20 → JD.MS 16:12
PROVIDERS: ADMIT Family Medicine; ATTEND Family Medicine
PROC: 5A09457 Assistance with Respiratory Ventilation, 24-96 Consecutive Hours, Continuous Positive Airway Pressure (ICD-10-PCS; principal; 2024-01-14)
DX: S22.22XA Fracture of body of sternum, initial encounter for closed fracture (principal); S22.060A Wedge compression fracture of T7-T8 vertebra, initial encounter for closed fracture; S22.050A Wedge compression fracture of T5-T6 vertebra, initial encounter for closed fracture; S12.100A Unspecified displaced fracture of second cervical vertebra, initial encounter for closed fracture; W17.89XA Other fall from one level to another, initial encounter; J96.01 Acute respiratory failure with hypoxia; S06.9XAA Unspecified intracranial injury with loss of consciousness status unknown, initial encounter; S22.038A Other fracture of third thoracic vertebra, initial encounter for closed fracture; S22.058A Other fracture of T5-T6 vertebra, initial encounter for closed fracture; S22.068A Other fracture of T7-T8 thoracic vertebra, initial encounter for closed fracture; S22.20XA Unspecified fracture of sternum, initial encounter for closed fracture; N17.9 Acute kidney failure, unspecified; J98.11 Atelectasis; S00.01XA Abrasion of scalp, initial encounter; W10.9XXA Fall (on) (from) unspecified stairs and steps, initial encounter; K59.09 Other constipation; Z96.659 Presence of unspecified artificial knee joint; N20.0 Calculus of kidney; R93.89 Abnormal findings on diagnostic imaging of other specified body structures; E88.09 Other disorders of plasma-protein metabolism, not elsewhere classified; E83.39 Other disorders of phosphorus metabolism; E87.6 Hypokalemia; Y93.89 Activity, other specified; Y92.009 Unspecified place in unspecified non-institutional (private) residence as the place of occurrence of the external cause; Z79.899 Other long term (current) drug therapy; Z98.49 Cataract extraction status, unspecified eye
CPT/HCPCS: 36415; 70450; 70498; 71260; 72125; 72128; 72131; 74177; 80053; 83690; 85025; 96374; 96375; 96376; 99285; J1171 ×2; J1885; J2405; Q9967 ×2; 51701; 51798; 71045; 71045-26; 71046; 71046-26; 80048; 83735; 84100; 87428-QW; 93005; 94640; 94660; 94667; 94668; 94760; 94761; 97110-GP; 97116-GP; 97161-GP; 97530-GP; A9270-GY; C1758; J1650; J1940; J7030; J7120; J7620-GY

== ENCOUNTER 2024-03-04 09:07 | Emergency (ER) | payer MEDICARE, OTHER ==
[2024-03-04 09:44] LABS: BASOPHILS PERCENT AUTO 0.3 % (0.0-1.0); EOSINOPHILS ABSOLUTE AUTO 0.3 K/mm3 (0.0-0.4); EOSINOPHILS PERCENT AUTO 3.7 % (0.0-6.0); HEMATOCRIT 49.2 % (37.0-47.0); IMMATURE GRAN ABSOLUTE AUTO 0.01 K/mm3 (0.00-0.05); IMMATURE GRAN PERCENT AUTO 0.1 % (0.0-0.4); LYMPHOCYTES ABSOLUTE AUTO 1.9 K/mm3 (1.0-4.8); LYMPHOCYTES PERCENT AUTO 24.4 % (24.0-44.0); MEAN CORPUSCULAR HEMOGLOBIN 30.8 pg (28.0-32.0); MEAN CORPUSCULAR HGB CONC 33.3 g/dl (32.0-36.0); MEAN CORPUSCULAR VOLUME 92.3 fl (83.0-99.0); MONOCYTES ABSOLUTE AUTO 0.5 K/mm3 (0.0-0.8); MONOCYTES PERCENT AUTO 7.1 % (0.0-8.0); NEUTROPHILS ABSOLUTE AUTO 4.9 K/mm3 (1.8-7.7); NEUTROPHILS PERCENT AUTO 64.4 % (41.0-71.0); PLATELET COUNT,PLT 209 K/mm3 (150-400); RED BLOOD CELL COUNT 5.33 M/mm3 (4.10-5.30); WHITE BLOOD CELL COUNT,WBC 7.59 K/mm3 (3.9-11.3)
[2024-03-04 09:54] LABS: A/G RATIO 1.2 (1-2); ALANINE AMINOTRANSFERASE,ALT 25 U/L (14-59); ALBUMIN 3.9 g/dl (3.4-5.0); ALKALINE PHOSPHATASE 87 U/L (46-116); ANION GAP 15.9 (5-15); ASPARTATE AMNIOTRANSFERASE,AST 19 U/L (15-37); BILIRUBIN TOTAL 0.8 mg/dL (0.2-1.0); BLOOD UREA NITROGEN,BUN 15 mg/dL (7-18); CALCIUM 8.8 mg/dL (8.5-10.1); CARBON DIOXIDE,CO2 24 mEq/L (21-32); CHLORIDE,CL 105 mEq/L (98-107); ESTIMATED GFR 56 mL/min (>60); GLUCOSE RANDOM 98 mg/dL (70-99); MAGNESIUM 1.9 mg/dL (1.8-2.4); POTASSIUM,K 3.9 mEq/L (3.5-5.1); PROTEIN TOTAL,TP 7.3 g/dl (6.4-8.2); SODIUM,NA 141 mEq/L (136-145)
[2024-03-04 09:56] LABS: HEMOGLOBIN 16.4 gm/dl (12.0-16.0)
[2024-03-04 11:28] LABS: APPEARANCE,URINE CLEAR (Clear); BILIRUBIN,URINE NEGATIVE (Negative); COLOR,URINE YELLOW (Yellow); GLUCOSE,URINE NEGATIVE (Negative); KETONES,URINE NEGATIVE (Negative); LEUKOCYTE ESTERASE,URINE TRACE (Negative); NITRITE,URINE NEGATIVE (Negative); OCCULT BLOOD,URINE 2+ (Negative); PROTEIN,URINE 1+ (Negative); UROBILINOGEN,URINE 0.2 (0.2-1.0)
[2024-03-04] MEDS: Lidocaine 1% with EPINEPHrine 1:100,000 20 ML MDV INJECT ONE (11:40)
[2024-03-04 11:48] LABS: BACTERIA,URINE MODERATE /hpf (FEW); MUCUS,URINE MODERATE /hpf (FEW); SQUAMOUS EPITHELIAL CELLS,UR 0-5 /hpf (0-5)
[2024-03-04] MEDS ORDERED: Lidocaine 1% with EPINEPHrine 1:100,000 10 ML MDV INJECT ONE (11:53)
[2024-03-04 16:30] VITALS: BP 140/92; PULSE 88
== END 2024-03-04 14:05 ==
LOC: JD.ED 09:07
DX: S01.01XA Laceration without foreign body of scalp, initial encounter (principal); S09.90XA Unspecified injury of head, initial encounter; W01.198A Fall on same level from slipping, tripping and stumbling with subsequent striking against other object, initial encounter; Y92.129 Unspecified place in nursing home as the place of occurrence of the external cause
CPT/HCPCS: 12002; 36415; 70450; 72125; 80053; 81001; 83735; 85025; 87086; 99284; C1758; J3490